=== PATIENT | female | born 1935 | race Caucasian/White ===

== ENCOUNTER 2020-06-13 15:52 | Inpatient (IN) | payer MEDICARE, BC ==
[~2020-06-13] VITALS: Ht 152.4 cm; Wt 60.8 kg
[2020-06-13] MEDS ORDERED: Z GUARD REMEDY PASTE 57 GM TUBE TOP PRN (18:00)
[2020-06-13 19:10] VITALS: BP 141/52
[2020-06-13] MEDS ORDERED: DOCU-141 PO (20:20)
[2020-06-13] MEDS ORDERED: LACT1CAP69 PO (20:20)
[2020-06-13] MEDS ORDERED: ACET-73 PO (20:20)
[2020-06-13] MEDS ORDERED: CETI-90 PO (20:20)
[2020-06-13] MEDS ORDERED: METO25TA3 PO (20:20)
[2020-06-13] MEDS ORDERED: POLY17PO4 GT (20:20)
[2020-06-13] MEDS ORDERED: CHOL10002 PO (20:20)
[2020-06-13] MEDS ORDERED: CALC-343 PO (20:20)
[2020-06-13] MEDS ORDERED: LEVO25TA9 PO (20:20)
[2020-06-13] MEDS ORDERED: TRAM50TA2 PO (20:20)
[2020-06-13] MEDS ORDERED: MULT-594 PO (20:20)
[2020-06-13] MEDS ORDERED: ENOX40DI SQ (20:20)
[2020-06-13] MEDS ORDERED: MONT10TA22 PO (20:20)
[2020-06-13] MEDS ORDERED: OMEG1CAP55 PO (20:20)
[2020-06-13] MEDS ORDERED: DULO20CA PO (20:20)
[2020-06-13] MEDS ORDERED: MIRALAX 17 GM POWD.PACK GT PRN (21:00)
[2020-06-13] MEDS ORDERED: TRAMADOL HCL 50 MG TABLET PO PRN (21:00)
[2020-06-13] MEDS: CETIRIZINE HCL 10 MG TABLET PO SCH (22:07)
[2020-06-13] MEDS: DULOXETINE 20 MG CAPSULE.DR PO SCH (22:07)
[2020-06-13] MEDS: METOPROLOL SUCCINATE XL 25 MG TAB.SR.24H PO SCH (22:08)
--- NOTE | 2020-06-14 00:29 | NUR ---
Received a 85 year old female from [facility] S/P left Total Knee Replacement (06/09) by Dr Lopez. AAOx4 No acute distress noted. Kept comfortable. Dr Moon aware of patient's admission. Meds reconcile by Dr Chua. OOB to the BR via walker with minimal assist. Voiding freely. Left knee dressing clean dry and intact. Patient refused to have picture taken on the surgical site. Needs attended. Will monitor patient. WBAT to LLE. Denies any pain @ this time. VSS. Tolerated po meds well. Fall precautions maintained. Siderails up for safety.
[2020-06-14 05:19] VITALS: BP 132/54
[2020-06-14] MEDS: LEVOTHYROXINE SODIUM 25 MCG TABLET PO SCH (06:23)
--- NOTE | 2020-06-14 07:15 | NUR ---
End of shift notes: Slept well throughout the night. No distress noted. Left knee dressing clean dry and intact. No complaints presented during shift. Attended to needs and met.VSS.
[2020-06-14 07:37] VITALS: BP 152/53
[2020-06-14] MEDS: CALCIUM CARBONATE 500 MG TABLET PO SCH ×2 (08:07→16:42)
[2020-06-14] MEDS: MULTIVITAMINS,THERAPEUTIC TABLET PO SCH (08:07)
[2020-06-14] MEDS: CHOLECALCIFEROL 1,000 UNIT TABLET PO SCH (08:07)
[2020-06-14] MEDS: OMEGA-3 FATTY ACIDS/FISH OIL CAPSULE PO SCH (08:07)
[2020-06-14] MEDS: DOCUSATE SODIUM 100 MG CAPSULE PO SCH ×2 (08:07→16:42)
[2020-06-14] MEDS: ACETAMINOPHEN ES 500 MG TABLET PO SCH ×3 (08:07→16:42)
[2020-06-14] MEDS ORDERED: ENOXAPARIN SODIUM 40 MG/0.4 ML DISP.SYRIN SQ ONE (09:00)
[2020-06-14] MEDS ORDERED: DOCUSATE SODIUM 100 MG CAPSULE PO SCH (09:00)
[2020-06-14] MEDS ORDERED: MONTELUKAST SODIUM 10 MG TABLET PO SCH (09:00)
[2020-06-14 15:37] VITALS: BP 138/47
[2020-06-14] MEDS: MONTELUKAST SODIUM 10 MG TABLET PO SCH (17:04)
[2020-06-14] MEDS: CULTURELLE CAPSULE PO SCH (20:35)
[2020-06-14] MEDS: METOPROLOL SUCCINATE XL 25 MG TAB.SR.24H PO SCH (20:36)
[2020-06-14] MEDS: DULOXETINE 20 MG CAPSULE.DR PO SCH (20:36)
[2020-06-14] MEDS: CETIRIZINE HCL 10 MG TABLET PO SCH (20:36)
[2020-06-14 20:40] VITALS: BP 108/61
[2020-06-15 04:25] VITALS: BP 134/67
--- NOTE | 2020-06-15 04:37 | NUR ---
AAOx3-4 Condition unchanged.dmitted for left knee arthroplasty. left knee dressing intact. Denies any pain nor any discomfort.VSS. Fall precautions maintained.Siderails up for safety. Call celaya within reach. No acute distress noted. OOB to the BR with supervision.
[2020-06-15] MEDS: LEVOTHYROXINE SODIUM 25 MCG TABLET PO SCH (06:27)
--- NOTE | 2020-06-15 06:43 | NUR ---
End of shift notes: Slept well throughout the night. VSS Needs attended. Voiding well. No complaints presented during shift.
[2020-06-15 07:30] VITALS: BP 97/46
[2020-06-15] MEDS: MULTIVITAMINS,THERAPEUTIC TABLET PO SCH (08:05)
[2020-06-15] MEDS: CHOLECALCIFEROL 1,000 UNIT TABLET PO SCH (08:05)
[2020-06-15] MEDS: OMEGA-3 FATTY ACIDS/FISH OIL CAPSULE PO SCH (08:06)
[2020-06-15] MEDS: ENOXAPARIN SODIUM 40 MG/0.4 ML DISP.SYRIN SQ SCH (08:06)
[2020-06-15] MEDS: CALCIUM CARBONATE 500 MG TABLET PO SCH ×2 (08:06→16:19)
[2020-06-15] MEDS: DOCUSATE SODIUM 100 MG CAPSULE PO SCH ×2 (08:06→16:19)
[2020-06-15] MEDS: ACETAMINOPHEN ES 500 MG TABLET PO SCH ×3 (08:06→16:19)
[2020-06-15] MEDS: MIRALAX 17 GM POWD.PACK PO PRN (14:40)
[2020-06-15 14:44] VITALS: BP 107/41
[2020-06-15] MEDS: MONTELUKAST SODIUM 10 MG TABLET PO SCH (17:03)
[2020-06-15] MEDS: CULTURELLE CAPSULE PO SCH (20:31)
[2020-06-15] MEDS: DULOXETINE 20 MG CAPSULE.DR PO SCH (20:32)
[2020-06-15] MEDS: METOPROLOL SUCCINATE XL 25 MG TAB.SR.24H PO SCH (20:32)
[2020-06-15] MEDS: CETIRIZINE HCL 10 MG TABLET PO SCH (20:35)
[2020-06-15] MEDS ORDERED: SENNOSIDES 1 TABLET PO SCH (21:00)
--- NOTE | 2020-06-15 21:49 | NUR ---
Resting in bed upon rounds. AAOx4 No acute distress noted. Fall precautions maintained. Siderails up for safety. VSS. Left knee dressing clean dry and intact. Denies any pain at this time. Tolerated po meds well. Will monitor patient.
[2020-06-16 04:00] VITALS: BP 126/51
[2020-06-16] MEDS: LEVOTHYROXINE SODIUM 25 MCG TABLET PO SCH (06:21)
--- NOTE | 2020-06-16 06:44 | NUR ---
End of shift notes: Quiet night. OOB to the BR with walker with supervision. Needs attended. Continent of bowel and bladder. BM noted this shift.Kept comfortable. No complaints presented during shift.
--- NOTE | 2020-06-16 07:00 | NUR ---
received in bed awake .pt is axox4 call light with in reach vs are stable
[2020-06-16 08:00] VITALS: BP 107/54
[2020-06-16] MEDS: CHOLECALCIFEROL 1,000 UNIT TABLET PO SCH (08:01)
[2020-06-16] MEDS: CALCIUM CARBONATE 500 MG TABLET PO SCH ×2 (08:01→16:06)
[2020-06-16] MEDS: MULTIVITAMINS,THERAPEUTIC TABLET PO SCH (08:01)
[2020-06-16] MEDS: DOCUSATE SODIUM 100 MG CAPSULE PO SCH ×2 (08:01→16:06)
[2020-06-16] MEDS: ACETAMINOPHEN ES 500 MG TABLET PO SCH ×3 (08:01→16:06)
[2020-06-16] MEDS: OMEGA-3 FATTY ACIDS/FISH OIL CAPSULE PO SCH (08:02)
[2020-06-16] MEDS: ENOXAPARIN SODIUM 40 MG/0.4 ML DISP.SYRIN SQ SCH (08:03)
--- NOTE | 2020-06-16 13:48 | NUR ---
INDIVIDUALIZED PLAN OF CARE
--- NOTE | 2020-06-16 13:54 | NUR ---
INTERDISCIPLINARY TEAM CONFERENCE
[2020-06-16 16:00] VITALS: BP 143/49
[2020-06-16] MEDS: MONTELUKAST SODIUM 10 MG TABLET PO SCH (17:10)
--- NOTE | 2020-06-16 19:00 | NUR ---
Patient received from AM nurse. VSS. Will continue to monitor and assess.
[2020-06-16 20:00] VITALS: BP 147/57
[2020-06-16] MEDS: METOPROLOL SUCCINATE XL 25 MG TAB.SR.24H PO SCH (20:02)
[2020-06-16] MEDS: DULOXETINE 20 MG CAPSULE.DR PO SCH (20:02)
[2020-06-16] MEDS: CULTURELLE CAPSULE PO SCH (20:02)
[2020-06-16] MEDS: CETIRIZINE HCL 10 MG TABLET PO SCH (20:02)
[2020-06-17 04:00] VITALS: BP 129/72
--- NOTE | 2020-06-17 04:02 | NUR ---
Patient is a pleasant 85 y/o female. Slept soundly with no reports of pain, discomfort, or SOB. VSS. Medications given as prescribed. Patient educated as to importance of using call light to get out of bed, continually forgets, bed alarm on. Will continue to monitor and assess.
[2020-06-17] MEDS: LEVOTHYROXINE SODIUM 25 MCG TABLET PO SCH (06:00)
--- NOTE | 2020-06-17 07:04 | NUR ---
Patient handed off to AM nurse. VSS. Patient in stable condition. Endorsing to AM nurse.
[2020-06-17] MEDS: DOCUSATE SODIUM 100 MG CAPSULE PO SCH ×2 (08:01→16:19)
[2020-06-17] MEDS: CALCIUM CARBONATE 500 MG TABLET PO SCH ×2 (08:02→16:19)
[2020-06-17] MEDS: MULTIVITAMINS,THERAPEUTIC TABLET PO SCH (08:02)
[2020-06-17] MEDS: ACETAMINOPHEN ES 500 MG TABLET PO SCH ×3 (08:02→16:19)
[2020-06-17] MEDS: CHOLECALCIFEROL 1,000 UNIT TABLET PO SCH (08:02)
[2020-06-17] MEDS: OMEGA-3 FATTY ACIDS/FISH OIL CAPSULE PO SCH (08:03)
[2020-06-17] MEDS: ENOXAPARIN SODIUM 40 MG/0.4 ML DISP.SYRIN SQ SCH (08:03)
[2020-06-17 08:17] VITALS: BP 136/57
[2020-06-17 14:58] VITALS: BP 132/58
[2020-06-17] MEDS: MONTELUKAST SODIUM 10 MG TABLET PO SCH (17:19)
[2020-06-17 20:35] VITALS: BP 143/72
[2020-06-17] MEDS: METOPROLOL SUCCINATE XL 25 MG TAB.SR.24H PO SCH (20:50)
[2020-06-17] MEDS: DULOXETINE 20 MG CAPSULE.DR PO SCH (20:50)
[2020-06-17] MEDS: CULTURELLE CAPSULE PO SCH (20:50)
[2020-06-17] MEDS: CETIRIZINE HCL 10 MG TABLET PO SCH (20:50)
[2020-06-18] MEDS: MIRALAX 17 GM POWD.PACK PO PRN ×2 (00:42→12:22)
[2020-06-18 05:22] VITALS: BP 147/54
[2020-06-18] MEDS: LEVOTHYROXINE SODIUM 25 MCG TABLET PO SCH (06:09)
--- NOTE | 2020-06-18 07:05 | NUR ---
Patient in bed, stable on RA. Assisted to bathroom once with walker. Not in any acute distress
[2020-06-18 08:00] VITALS: BP 154/64
[2020-06-18] MEDS ORDERED: MAG HYDROX/AL HYDROX/SIMETH 30 ML LIQUID UDC PO PRN (08:00)
[2020-06-18] MEDS: ENOXAPARIN SODIUM 40 MG/0.4 ML DISP.SYRIN SQ SCH (08:13)
[2020-06-18] MEDS: CHOLECALCIFEROL 1,000 UNIT TABLET PO SCH (08:15)
[2020-06-18] MEDS: ACETAMINOPHEN ES 500 MG TABLET PO SCH ×3 (08:15→16:21)
[2020-06-18] MEDS: MULTIVITAMINS,THERAPEUTIC TABLET PO SCH (08:15)
[2020-06-18] MEDS: OMEGA-3 FATTY ACIDS/FISH OIL CAPSULE PO SCH (08:15)
[2020-06-18] MEDS: DOCUSATE SODIUM 100 MG CAPSULE PO SCH ×2 (08:15→16:21)
[2020-06-18] MEDS: CALCIUM CARBONATE 500 MG TABLET PO SCH ×2 (08:15→16:21)
[2020-06-18] MEDS: ONDANSETRON ODT 4 MG TAB.RAPDIS SL PRN (11:40)
[2020-06-18 16:00] VITALS: BP 160/54
[2020-06-18] MEDS: MONTELUKAST SODIUM 10 MG TABLET PO SCH (17:02)
--- NOTE | 2020-06-18 19:57 | NUR ---
Received pt sleeping in bed. Does not appear to have any s/s of pain or respiratory distress at this time. Pt is on RA. Will continue to monitor.
[2020-06-18] MEDS: DULOXETINE 20 MG CAPSULE.DR PO SCH (20:42)
[2020-06-18] MEDS: CETIRIZINE HCL 10 MG TABLET PO SCH (20:42)
[2020-06-18] MEDS: CULTURELLE CAPSULE PO SCH (20:42)
[2020-06-18] MEDS: METOPROLOL SUCCINATE XL 25 MG TAB.SR.24H PO SCH (20:43)
[2020-06-18 20:56] VITALS: BP 123/56
--- NOTE | 2020-06-19 04:35 | NUR ---
RECEIVED PATIENT IN BED AWAKE ALERT AND VERBALLY RESPONSIVE DENIES PAIN OR DISCOMFORTS AT THIS TIME LEFT KNEE WITH DRESSING DRY AND INTACT ON ROOM AIR WITH NO SHORTNESS OF BREATH AT THIS TIME CALL LIGHTS AND PERSONAL BELONGINGS ARE WITHIN EASY REACH AT THIS TIME MADE COMFORTABLE WILL CONTINUE TO OBSERVE. Addendum: 06/19/20 at 1405 by TRINITY LUGO RN TIME ERROR ENTERED AT 3019
[2020-06-19 05:22] VITALS: BP 140/64
[2020-06-19] MEDS: LEVOTHYROXINE SODIUM 25 MCG TABLET PO SCH (06:20)
--- NOTE | 2020-06-19 06:43 | NUR ---
Pt slept throughout the night. Denies any pain or SOB at this time. Pt is on RA with no s/s of respiratory distress. All ordered medications given and tolerated well. Pt is able to ambulate to the restroom with assistance and a walker. Safety and comfort provided. Will endorse to day shift.
[2020-06-19 07:51] VITALS: BP 133/59
[2020-06-19] MEDS: CHOLECALCIFEROL 1,000 UNIT TABLET PO SCH (08:12)
[2020-06-19] MEDS: OMEGA-3 FATTY ACIDS/FISH OIL CAPSULE PO SCH (08:13)
[2020-06-19] MEDS: DOCUSATE SODIUM 100 MG CAPSULE PO SCH ×2 (08:13→16:26)
[2020-06-19] MEDS: CALCIUM CARBONATE 500 MG TABLET PO SCH ×2 (08:13→16:26)
[2020-06-19] MEDS: MULTIVITAMINS,THERAPEUTIC TABLET PO SCH (08:13)
[2020-06-19] MEDS: ENOXAPARIN SODIUM 40 MG/0.4 ML DISP.SYRIN SQ SCH (08:14)
[2020-06-19] MEDS: ACETAMINOPHEN ES 500 MG TABLET PO SCH ×3 (08:24→16:26)
--- NOTE | 2020-06-19 14:00 | NUR ---
SEEN AMBULATORY IN THE HALLWAY WITH THE PHYSICAL THERAPY WITH SLOW STEADY GAIT WITH FRONT WHEEL WALKER DENIES PAIN OR DISCOMFORTS AT THIS TIME.NOT IN DISTRESS.
[2020-06-19 16:00] VITALS: BP 122/63
[2020-06-19] MEDS: ENSURE ENLIVE (VAN) 240 ML LIQUID PO SCH (17:15)
[2020-06-19] MEDS: MONTELUKAST SODIUM 10 MG TABLET PO SCH (17:15)
--- NOTE | 2020-06-19 17:38 | NUR ---
RESTING IN BED EATING DINNER COMPLIANT AND COOPERATIVE PATIENT WAS ASSISTED INTO THE BATHROOM AND HAD A BOWEL MOVEMENT BACK AND IN SATISFACTORY CONDITION WILL CONTINUE TO OBSERVE.
--- NOTE | 2020-06-19 19:30 | NUR ---
Pt received awake and alert in bed. Denies any pain or difficulty breathing at this time. Pt is on RA. Will continue to monitor.
[2020-06-19 19:52] VITALS: BP 110/41
[2020-06-19] MEDS: CETIRIZINE HCL 10 MG TABLET PO SCH (20:40)
[2020-06-19] MEDS: DULOXETINE 20 MG CAPSULE.DR PO SCH (20:40)
[2020-06-19] MEDS: CULTURELLE CAPSULE PO SCH (20:40)
[2020-06-19] MEDS: METOPROLOL SUCCINATE XL 25 MG TAB.SR.24H PO SCH (20:41)
[2020-06-20 04:55] VITALS: BP 118/45
[2020-06-20] MEDS: LEVOTHYROXINE SODIUM 25 MCG TABLET PO SCH (06:23)
--- NOTE | 2020-06-20 06:30 | NUR ---
Received report from Christin VILLASEÑOR @ 0130. Pt sleeping, no acute distress noted. Morning medication administered. Safety and comfort provided. Will endorse to day shift.
--- NOTE | 2020-06-20 07:30 | NUR ---
PATIENT IN BED AWAKE ALERT AND AWARE DENIES PAIN OR DISCOMFORTS AT THIS TIME ON ROOM AIR WITH NO SHORTNESS OF BREATH CALL LIGHTS AND ALL PERSONAL BELONGINGS ARE WITHIN EASY REACH MADE COMFORTABLE WILL CONTINUE TO OBSERVE.
[2020-06-20 07:44] VITALS: BP 118/45
[2020-06-20] MEDS: DOCUSATE SODIUM 100 MG CAPSULE PO SCH ×2 (08:18→16:23)
[2020-06-20] MEDS: CALCIUM CARBONATE 500 MG TABLET PO SCH ×2 (08:18→16:23)
[2020-06-20] MEDS: ACETAMINOPHEN ES 500 MG TABLET PO SCH ×3 (08:18→16:23)
[2020-06-20] MEDS: MULTIVITAMINS,THERAPEUTIC TABLET PO SCH (08:18)
[2020-06-20] MEDS: CHOLECALCIFEROL 1,000 UNIT TABLET PO SCH (08:19)
[2020-06-20] MEDS: OMEGA-3 FATTY ACIDS/FISH OIL CAPSULE PO SCH (08:19)
[2020-06-20] MEDS: ENOXAPARIN SODIUM 40 MG/0.4 ML DISP.SYRIN SQ SCH (08:26)
[2020-06-20] MEDS: ENSURE ENLIVE (VAN) 240 ML LIQUID PO SCH ×3 (09:05→16:24)
[2020-06-20] MEDS: MONTELUKAST SODIUM 10 MG TABLET PO SCH (17:17)
--- NOTE | 2020-06-20 18:28 | NUR ---
PATIENT TOLERATED PHYSICAL AND OCCUPATIONAL THERAPIES ORDERED SEATED UP ON THE CHAIR AND ASSISTED BACK TO BED AFTER HER DINNER CONTINUE ON ROUTINE TYLENOL ORDERED AND HELPFUL WILL CONTINUE TO OBSERVE AND PROVIDE COMFORT.
[2020-06-20 20:38] VITALS: BP 106/49
[2020-06-20] MEDS: DULOXETINE 20 MG CAPSULE.DR PO SCH (20:49)
[2020-06-20] MEDS: METOPROLOL SUCCINATE XL 25 MG TAB.SR.24H PO SCH (20:49)
[2020-06-20] MEDS: CULTURELLE CAPSULE PO SCH (20:49)
[2020-06-20] MEDS: CETIRIZINE HCL 10 MG TABLET PO SCH (20:49)
[2020-06-21 04:53] VITALS: BP 110/40
[2020-06-21] MEDS: LEVOTHYROXINE SODIUM 25 MCG TABLET PO SCH (06:02)
[2020-06-21 07:04] LABS: BASOPHILS % (AUTO) 0.4 % (0.0-2.0); EOSINOPHILS # (AUTO) 0.1 K/uL (0.0-0.7); EOSINOPHILS % (AUTO) 1.3 % (0.0-7.0); HEMATOCRIT 28.5 % (31.2-41.9); HEMOGLOBIN 9.9 g/dL (10.9-14.3); LYMPHOCYTES # (AUTO) 1.3 K/uL (20.0-40.0); LYMPHOCYTES % (AUTO) 18.2 % (20.5-51.5); MEAN CORPUSCULAR HEMOGLOBIN 31.8 uug (24.7-32.8); MEAN CORPUSCULAR HGB CONC 35 g/dL (32.3-35.6); MEAN CORPUSCULAR VOLUME 91.6 fL (75.5-95.3); MONOCYTES # (AUTO) 0.9 K/uL (2.0-10.0); MONOCYTES % (AUTO) 13.3 % (0.0-11.0); NEUTROPHILS # (AUTO) 4.7 K/uL (1.8-8.9); NEUTROPHILS % (AUTO) 66.8 % (38.5-71.5); PLATELET COUNT (AUTO) 159 K/uL (179-408); RED BLOOD CELL COUNT(AUTO) 3.11 MIL/uL (3.63-4.92)
[2020-06-21 07:16] LABS: THYROID STIMULATING HORMONE 1.88 mIU/mL (0.358-3.740)
[2020-06-21 08:00] VITALS: BP 102/41
[2020-06-21 08:01] LABS: BILIRUBIN,TOTAL 0.8 mg/dL (0.2-1.0); CREATININE 1.1 mg/dL (0.6-1.3); MAGNESIUM 2.1 mg/dL (1.8-2.4); PHOSPHOROUS 4.2 mg/dL (2.5-4.9); POTASSIUM 4.1 mmol/L (3.5-5.1); TOTAL PROTEIN, SERUM 6.7 g/dL (6.4-8.2)
[2020-06-21] MEDS: CHOLECALCIFEROL 1,000 UNIT TABLET PO SCH (08:51)
[2020-06-21] MEDS: MULTIVITAMINS,THERAPEUTIC TABLET PO SCH (08:52)
[2020-06-21] MEDS: DOCUSATE SODIUM 100 MG CAPSULE PO SCH ×2 (08:52→17:00)
[2020-06-21] MEDS: CALCIUM CARBONATE 500 MG TABLET PO SCH ×2 (08:56→17:49)
[2020-06-21] MEDS: ONDANSETRON ODT 4 MG TAB.RAPDIS SL PRN (08:56)
[2020-06-21] MEDS: OMEGA-3 FATTY ACIDS/FISH OIL CAPSULE PO SCH (08:57)
[2020-06-21] MEDS: ENSURE ENLIVE (VAN) 240 ML LIQUID PO SCH ×3 (08:58→17:00)
[2020-06-21] MEDS: ACETAMINOPHEN ES 500 MG TABLET PO SCH ×3 (09:01→17:49)
[2020-06-21] MEDS ORDERED: ENOXAPARIN SODIUM 30 MG/0.3 ML DISP.SYRIN SQ SCH (10:51)
[2020-06-21] MEDS: ENOXAPARIN SODIUM 30 MG/0.3 ML DISP.SYRIN SQ SCH (11:58)
[2020-06-21 15:56] VITALS: BP 101/46
[2020-06-21] MEDS: MONTELUKAST SODIUM 10 MG TABLET PO SCH (17:54)
--- NOTE | 2020-06-21 19:35 | NUR ---
Sleeping during initial rounds. No s/s of respiratory distress noted. Safety measures and fall prevention maintained. Continue care as planned.
[2020-06-21 20:00] VITALS: BP 109/45
[2020-06-21] MEDS: METOPROLOL SUCCINATE XL 25 MG TAB.SR.24H PO SCH (21:00)
[2020-06-21] MEDS: CETIRIZINE HCL 10 MG TABLET PO SCH (21:16)
[2020-06-21] MEDS: CULTURELLE CAPSULE PO SCH (21:16)
[2020-06-21] MEDS: DULOXETINE 20 MG CAPSULE.DR PO SCH (21:16)
[2020-06-22 04:00] VITALS: BP 118/62
[2020-06-22] MEDS: LEVOTHYROXINE SODIUM 25 MCG TABLET PO SCH (06:10)
[2020-06-22] MEDS: CALCIUM CARBONATE 500 MG TABLET PO SCH (08:02)
[2020-06-22] MEDS: OMEGA-3 FATTY ACIDS/FISH OIL CAPSULE PO SCH (08:02)
[2020-06-22] MEDS: MULTIVITAMINS,THERAPEUTIC TABLET PO SCH (08:02)
[2020-06-22] MEDS: CHOLECALCIFEROL 1,000 UNIT TABLET PO SCH (08:02)
[2020-06-22] MEDS: ENOXAPARIN SODIUM 30 MG/0.3 ML DISP.SYRIN SQ SCH (08:03)
[2020-06-22] MEDS: ACETAMINOPHEN ES 500 MG TABLET PO SCH (08:05)
[2020-06-22 08:40] VITALS: BP 128/45
--- NOTE | 2020-06-22 08:45 | NUR ---
pt heart rate is 135 to 125 md made aware new orders received note and carried out
[2020-06-22] MEDS: DOCUSATE SODIUM 100 MG CAPSULE PO SCH (09:00)
[2020-06-22] MEDS ORDERED: ENOXAPARIN SODIUM 30 MG/0.3 ML DISP.SYRIN SQ SCH (09:00)
[2020-06-22] MEDS: ENSURE ENLIVE (VAN) 240 ML LIQUID PO SCH (09:29)
--- NOTE | 2020-06-22 09:46 | NUR ---
dc orders received noted and carried out,dc instruction and education given to the pt.dc pt to ms floor
== END 2020-06-22 09:48 | disposition short-term general hospital (02) | DRG 560 ==
PROVIDERS: ADMIT Physical Medicine & Rehabilitation Pain Medicine; ATTEND Physical Medicine & Rehabilitation Pain Medicine
DX: Z47.1 Aftercare following joint replacement surgery (principal); M00.9 Pyogenic arthritis, unspecified; Z96.652 Presence of left artificial knee joint; E03.9 Hypothyroidism, unspecified; I10 Essential (primary) hypertension; J44.9 Chronic obstructive pulmonary disease, unspecified; M19.90 Unspecified osteoarthritis, unspecified site; R53.1 Weakness; R00.0 Tachycardia, unspecified; R06.02 Shortness of breath; E06.3 Autoimmune thyroiditis; E78.5 Hyperlipidemia, unspecified; M17.10 Unilateral primary osteoarthritis, unspecified knee; M81.0 Age-related osteoporosis without current pathological fracture; Z86.718 Personal history of other venous thrombosis and embolism; Z90.49 Acquired absence of other specified parts of digestive tract
CPT/HCPCS: 36415; 82652; 83550; 83735; 84100; 84443; 85025; A9150; J1650; Q0162

== ENCOUNTER 2020-06-22 09:56 | Inpatient (IN) | payer MEDICARE, BC ==
[2020-06-22] VITALS (8 sets, daily range): BP systolic 113–136; BP diastolic 46–60
[~2020-06-22] VITALS: Ht 154.9 cm; Wt 59.9 kg
[~2020-06-22 09:56] MED LIST: ACET-73 PO; CALC-343 PO; CETI-90 PO; CHOL10002 PO; DOCU-141 PO; DULO20CA PO; ENOX40DI SQ; LACT1CAP69 PO; LEVO25TA9 PO; METO25TA3 PO; MONT10TA22 PO; MULT-594 PO; OMEG1CAP55 PO; POLY17PO4 GT; TRAM50TA2 PO
--- NOTE | 2020-06-22 10:30 | NUR ---
pt received from aru to room 321 for tachycardia ,pt is axox3 brp call light with in reach vs are stable
[2020-06-22] MEDS ORDERED: ONDANSETRON 4 MG/2 ML VIAL IV PRN (12:30)
[2020-06-22] MEDS ORDERED: TEMAZEPAM 15 MG CAPSULE PO PRN (12:30)
[2020-06-22] MEDS ORDERED: MIRALAX 17 GM POWD.PACK GT PRN (12:30)
[2020-06-22 13:36] LABS: POTASSIUM 4.4 mmol/L (3.5-5.1)
[2020-06-22 13:38] LABS: BASOPHILS % (AUTO) 0.4 % (0.0-2.0); EOSINOPHILS # (AUTO) 0.1 K/uL (0.0-0.7); EOSINOPHILS % (AUTO) 1.3 % (0.0-7.0); HEMATOCRIT 32.4 % (31.2-41.9); HEMOGLOBIN 10.7 g/dL (10.9-14.3); LYMPHOCYTES # (AUTO) 1.7 K/uL (20.0-40.0); LYMPHOCYTES % (AUTO) 22.4 % (20.5-51.5); MEAN CORPUSCULAR HEMOGLOBIN 30.6 uug (24.7-32.8); MEAN CORPUSCULAR HGB CONC 33 g/dL (32.3-35.6); MEAN CORPUSCULAR VOLUME 92.7 fL (75.5-95.3); MONOCYTES # (AUTO) 0.8 K/uL (2.0-10.0); MONOCYTES % (AUTO) 10.9 % (0.0-11.0); PLATELET COUNT (AUTO) 238 K/uL (179-408); WHITE BLOOD COUNT (AUTO) 7.7 K/uL (3.8-11.8)
[2020-06-22 13:48] LABS: PHOSPHOROUS 4.3 mg/dL (2.5-4.9)
[2020-06-22 15:39] LABS: *BILIRUBIN,URIN NEGATIVE (NEGATIVE); *CLARITY,URINE CLEAR (CLEAR); *COLOR,URINE YELLOW (YELLOW); *KETONES,URINE NEGATIVE (NEGATIVE); *UROBILINOGEN,URINE 0.2 E.U./dl (NORMAL); LEUKOCYTE ESTERASE ,URINE NEGATIVE (NEGATIVE); NITRITE, URINE NEGATIVE (NEGATIVE); PH,URINE 6.5 (5.0-8.0); UGLUCOSE NEGATIVE (NEGATIVE)
[2020-06-22 15:40] LABS: *BLOOD, URINE TRACE INTACT (NEGATIVE)
[2020-06-22] MEDS: ASPIRIN EC 81 MG TABLET.DR PO SCH (15:51)
[2020-06-22] MEDS ORDERED: IV NORMAL SALINE 250 ML IV ONE (17:20)
[2020-06-22] MEDS ORDERED: SWABABLE VALVE TRANSFER SET EA MC ONE (17:20)
[2020-06-22] MEDS ORDERED: IOHEXOL 350 100 ML INFUS..BTL ONE (17:20)
[2020-06-22] MEDS: CALCIUM CARBONATE 500 MG TABLET PO SCH (17:29)
[2020-06-22] MEDS: DOCUSATE SODIUM 100 MG CAPSULE PO SCH (17:29)
--- NOTE | 2020-06-22 18:10 | NUR ---
transfer the pt to ccu via wheel chair for pe per md orders
[2020-06-22] MEDS ORDERED: HEPARIN/D5W DRIP 500 ML IV PRN (18:45)
[2020-06-22 19:12] LABS: BACTERIA,URINE NONE SEEN /HPF (NONE SEEN); SQUAMOUS EPITHELIAL CELL,UR MANY /HPF (NONE SEEN); WBC,URINE 0-3 /HPF (0-3)
--- NOTE | 2020-06-22 19:30 | NUR ---
Report received. Patient transferred in from 3rd floor because of tachycardia and Pulmonary Emboli per CTA. Blood drawn for baseline PTT. Patient AAO, plan of care discussed including Heparin drip. Patient verbalized understanding. Assessment done. Heparin drip protocol for non ACS discussed with Pharmacist. Addendum: 06/22/20 at 2300 by MARCIO BAILEY RN Amended: Links added. Addendum: 06/22/20 at 2303 by MARCIO BAILEY RN Amended: Links added. Addendum: 06/22/20 at 2312 by MARCIO BAILEY RN Amended: Links added.
--- NOTE | 2020-06-22 19:54 | NUR ---
Dr. Holt informed of PTT results, Heparin bolus as per protocol and need for Sargent catheter. ordered no bolus and ok for Sargent catheter. Pharmacist informed of MD's order. Addendum: 06/22/20 at 2303 by MARCIO BAILEY RN Amended: Links added. Addendum: 06/22/20 at 2312 by MARCIO BAILEY RN Amended: Links added.
--- NOTE | 2020-06-22 20:05 | NUR ---
Dr. Holt visited; spoke to patient re: plan of care. Sargent catheter F#16 inserted aseptically; with clear yellow urine. Addendum: 06/22/20 at 2312 by MARCIO BAILEY RN Amended: Links added.
--- NOTE | 2020-06-22 20:30 | NUR ---
Heparin drip started to LAC IV site; PTT in 6 hours.
[2020-06-22] MEDS ORDERED: DULOXETINE 20 MG CAPSULE.DR PO SCH (21:00)
[2020-06-22] MEDS: CULTURELLE CAPSULE PO SCH (21:13)
[2020-06-22] MEDS: METOPROLOL SUCCINATE XL 25 MG TAB.SR.24H PO SCH (21:13)
[2020-06-22] MEDS: CETIRIZINE HCL 10 MG TABLET PO SCH (21:13)
[2020-06-22] MEDS ORDERED: METOPROLOL SUCCINATE XL 25 MG TAB.SR.24H PO ONE (21:14)
[2020-06-22] MEDS ORDERED: CETIRIZINE HCL 10 MG TABLET ONE (21:15)
[2020-06-22] MEDS: ACETAMINOPHEN 325 MG TABLET PO PRN (21:18)
--- NOTE | 2020-06-22 22:30 | NUR ---
Noted to have sleep apnea; saturations down to the 60's and lips pale. Patient awakened and saturations improved. O2 5 L simple mask administered. Will monitor closely.
[2020-06-23] VITALS (9 sets, daily range): BP systolic 94–154; BP diastolic 46–83
--- NOTE | 2020-06-23 00:20 | NUR ---
Patient awake. C/o pain L knee. Tylenol with little effect. Medicated with Ultram. Am care done. Turned and repositioned for comfort.
[2020-06-23] MEDS: TRAMADOL HCL 50 MG TABLET PO PRN (00:29)
--- NOTE | 2020-06-23 00:30 | NUR ---
Refusing O2 mask. Monitored closely. Saturations maintaining above 94% on room air.
--- NOTE | 2020-06-23 02:30 | NUR ---
Patient refused blood draw after yard labor supervisor failed to obtain sample the first time. Talked to patient and advised of importance of the test and she agreed. Blood sample for PTT obtained by tech but with difficulty.
--- NOTE | 2020-06-23 03:20 | NUR ---
PTT results=75.2 seconds. Heparin drip decreased to 1000 units/H as per protocol. Repeat PTT in 6 hours= 0920 ordered. No signs of bleeding.
--- NOTE | 2020-06-23 06:00 | NUR ---
Remains on Heparin drip at 1000 units/H. No signs of bleeding. VS stable.
[2020-06-23] MEDS: PANTOPRAZOLE SODIUM 40 MG TABLET.DR PO SCH (06:10)
--- NOTE | 2020-06-23 07:04 | NUR ---
Transfer order received from Dr. Holt. Patient to go to [facility].
[2020-06-23 07:31] LABS: BASOPHILS % (AUTO) 0.4 % (0.0-2.0); EOSINOPHILS % (AUTO) 0.5 % (0.0-7.0); HEMATOCRIT 32.3 % (31.2-41.9); HEMOGLOBIN 10.9 g/dL (10.9-14.3); LYMPHOCYTES # (AUTO) 1.4 K/uL (20.0-40.0); LYMPHOCYTES % (AUTO) 15.6 % (20.5-51.5); MEAN CORPUSCULAR HGB CONC 34 g/dL (32.3-35.6); MEAN CORPUSCULAR VOLUME 92.3 fL (75.5-95.3); MONOCYTES # (AUTO) 0.7 K/uL (2.0-10.0); MONOCYTES % (AUTO) 7.9 % (0.0-11.0); NEUTROPHILS # (AUTO) 6.8 K/uL (1.8-8.9); NEUTROPHILS % (AUTO) 75.6 % (38.5-71.5); PLATELET COUNT (AUTO) 108 K/uL (179-408); WHITE BLOOD COUNT (AUTO) 9.1 K/uL (3.8-11.8)
--- NOTE | 2020-06-23 07:41 | NUR ---
Transferred to 321 per bed; no acute distress noted. Heparin drip infusing well. All belongings including cell phone are with patient upon transfer.
[2020-06-23 07:48] LABS: CREATININE 0.9 mg/dL (0.6-1.3); MAGNESIUM 2.1 mg/dL (1.8-2.4); PHOSPHOROUS 4.4 mg/dL (2.5-4.9); POTASSIUM 4.7 mmol/L (3.5-5.1)
[2020-06-23] MEDS ORDERED: MONTELUKAST SODIUM 10 MG TABLET PO SCH (09:00)
[2020-06-23] MEDS ORDERED: LEVOTHYROXINE SODIUM 25 MCG TABLET PO SCH (09:00)
[2020-06-23] MEDS ORDERED: ENOXAPARIN SODIUM 30 MG/0.3 ML DISP.SYRIN SQ SCH (09:00)
[2020-06-23] MEDS: CHOLECALCIFEROL 1,000 UNIT TABLET PO SCH (09:29)
[2020-06-23] MEDS: ASPIRIN EC 81 MG TABLET.DR PO SCH (09:29)
[2020-06-23] MEDS: MULTIVITAMINS,THERAPEUTIC TABLET PO SCH (09:30)
[2020-06-23] MEDS: DOCUSATE SODIUM 100 MG CAPSULE PO SCH ×2 (09:30→17:51)
[2020-06-23] MEDS: CALCIUM CARBONATE 500 MG TABLET PO SCH ×2 (09:30→17:51)
[2020-06-23] MEDS: OMEGA-3 FATTY ACIDS/FISH OIL CAPSULE PO SCH (09:31)
--- NOTE | 2020-06-23 09:45 | NUR ---
PTT 53.1 seconds. No change in heparin drip rate. No s/s of bleeding. Denies any discomfort/pain.
--- NOTE | 2020-06-23 12:15 | NUR ---
Heparin drip d/c. Eliquis 5mg PO BID initiated.
[2020-06-23] MEDS ORDERED: TEMAZEPAM 7.5 MG CAPSULE PO PRN (12:45)
[2020-06-23] MEDS: APIXABAN 5 MG TABLET PO SCH ×2 (13:37→20:15)
--- NOTE | 2020-06-23 17:28 | NUR ---
Pt AAOx4 w/ some short term memory loss. S/p L TKA. Positive right lower lobe P.E. SR on monitor, denies CP. Ra, no SOB. No new skin issues, L knee dressing c/d/i with autumn hose stocking on. Bedrest, pt turned q2h. Continent x2, rush in place w/ clear yellow output. All needs attended to. Plan: AM labs, jose manuel for P.E., tele monitoring, abd US, pain management, hemat consult
[2020-06-23] MEDS: CETIRIZINE HCL 10 MG TABLET PO SCH (20:14)
[2020-06-23] MEDS: CULTURELLE CAPSULE PO SCH (20:16)
[2020-06-23] MEDS: METOPROLOL SUCCINATE XL 25 MG TAB.SR.24H PO SCH (20:18)
--- NOTE | 2020-06-23 20:30 | NUR ---
Patient refused CT Without Contrast. Would like to speak to son first. Was educated as to importance and ease of getting a CT, patient still refused. Will monitor and assess.
[2020-06-24] MEDS: PANTOPRAZOLE SODIUM 40 MG TABLET.DR PO SCH (06:03)
[2020-06-24] MEDS: LEVOTHYROXINE SODIUM 25 MCG TABLET PO SCH (06:03)
--- NOTE | 2020-06-24 06:57 | NUR ---
Patient handed off to AM nurse. Stable condition. All vitals WNLs. Safety measures in place. Will endorse to AM nurse.
[2020-06-24 07:46] LABS: THYROID STIMULATING HORMONE 2.582 mIU/mL (0.358-3.740)
--- NOTE | 2020-06-24 08:00 | NUR ---
RECEIVED PATIENT IN BED AWAKE ALERT AND AWARE DENIES PAIN OR DISCOMFORTS AT THIS TIME ON ROOM AIR WITH NO SHORTNESS OF BREATH AT THIS TIME DENIES PAIN OR DISCOMFORTS TELE IS SR AT THIS TIME CALL LIGHTS AND PERSONAL BELONGINGS ARE WITHIN EASY REACH WILL CONTINUE TO OBSERVE.
[2020-06-24 08:04] LABS: BILIRUBIN,DIRECT 0.1 mg/dL (0.0-0.2); BILIRUBIN,TOTAL 0.5 mg/dL (0.2-1.0); TOTAL PROTEIN, SERUM 7.1 g/dL (6.4-8.2)
[2020-06-24] MEDS: MULTIVITAMINS,THERAPEUTIC TABLET PO SCH (09:31)
[2020-06-24] MEDS: DOCUSATE SODIUM 100 MG CAPSULE PO SCH ×2 (09:31→16:48)
[2020-06-24] MEDS: CALCIUM CARBONATE 500 MG TABLET PO SCH ×2 (09:31→16:48)
[2020-06-24] MEDS: CHOLECALCIFEROL 1,000 UNIT TABLET PO SCH (09:32)
[2020-06-24] MEDS: OMEGA-3 FATTY ACIDS/FISH OIL CAPSULE PO SCH (09:32)
[2020-06-24] MEDS: APIXABAN 5 MG TABLET PO SCH ×2 (09:33→20:14)
[2020-06-24 12:00] VITALS: BP 120/63
--- NOTE | 2020-06-24 14:32 | NUR ---
CALL RECEIVED FROM RADIOLOGY DEPT STATED THAT PATIENT HAS REFUSED HER CT OF THE HEAD YERTERDAY AND WILL COME TO DO IT TODAY PATIENT AND HER SON IS NOW AGREEABLE TO HAVE IT DONE TODAY.
--- NOTE | 2020-06-24 14:37 | NUR ---
DR CALDERÓN HERE NOTIFIED HIM THAT THE PATIENT WANTS HER MCKENZIE TO BE REMOVED AND HE STATED TO GO AHEAD AND REMOVE IT MCKENZIE REMOVED PATIENT EDUCATED TO CALL TO BE ASSISTED TO THE BATHROOM WHENEVER SHE IS READY TO GO AND SHE EXPRESSED UNDERSTANDING.
[2020-06-24 16:00] VITALS: BP 128/50
[2020-06-24] MEDS: MONTELUKAST SODIUM 10 MG TABLET PO SCH (17:06)
--- NOTE | 2020-06-24 18:44 | NUR ---
PATIENT IS VOIDING APPETITE IS POOR HER SOUP FROM THE REFRIGERATOR WARMED UP AND GIVEN TO HER TO EAT SHE WAS SEEN BY DR ARANA WITH NEW LAB ORDERS MADE COMFORTABLE WILL CONTINUE TO OBSERVE.
[2020-06-24] MEDS ORDERED: BISACODYL 10 MG SUPP.RECT RC PRN (18:45)
[2020-06-24 20:00] VITALS: BP 94/53
--- NOTE | 2020-06-24 20:00 | NUR ---
AWAKE,ALERT UP TO BATHROOM WITH HELP HAD A BOWEL MOVEMENT.TO CAT SCAN OF HEAD VIA WHEELCHAIR, BACK STABLE.NO COMPLAINTS RESTING COMFORTABLY.
[2020-06-24] MEDS: CULTURELLE CAPSULE PO SCH (20:12)
[2020-06-24] MEDS: METOPROLOL SUCCINATE XL 25 MG TAB.SR.24H PO SCH (20:14)
[2020-06-24] MEDS: CETIRIZINE HCL 10 MG TABLET PO SCH (20:53)
[2020-06-25] VITALS: BP 127/50
--- NOTE | 2020-06-25 00:30 | NUR ---
complained of left lower extremity ultram 1 tab given,slightly relieved
[2020-06-25] MEDS: TRAMADOL HCL 50 MG TABLET PO PRN ×3 (00:35→22:54)
[2020-06-25] MEDS: ACETAMINOPHEN 325 MG TABLET PO PRN (02:41)
--- NOTE | 2020-06-25 03:00 | NUR ---
COMPLAINED OF LEFT LOWER EXTREMITY PAIN TYLENOL GRAIN 10 GIVEN SLEPT AFTER
[2020-06-25 04:00] VITALS: BP 120/72
[2020-06-25] MEDS: LEVOTHYROXINE SODIUM 25 MCG TABLET PO SCH (06:05)
[2020-06-25] MEDS: PANTOPRAZOLE SODIUM 40 MG TABLET.DR PO SCH (06:05)
[2020-06-25 07:17] LABS: BASOPHILS # (AUTO) 0.1 K/uL (0.0-8.0); BASOPHILS % (AUTO) 0.7 % (0.0-2.0); EOSINOPHILS # (AUTO) 0.1 K/uL (0.0-0.7); EOSINOPHILS % (AUTO) 1.4 % (0.0-7.0); HEMATOCRIT 31.9 % (31.2-41.9); HEMOGLOBIN 10.9 g/dL (10.9-14.3); LYMPHOCYTES # (AUTO) 1.9 K/uL (20.0-40.0); MEAN CORPUSCULAR HEMOGLOBIN 31.4 uug (24.7-32.8); MEAN CORPUSCULAR HGB CONC 34 g/dL (32.3-35.6); MONOCYTES # (AUTO) 1.1 K/uL (2.0-10.0); NEUTROPHILS # (AUTO) 6.2 K/uL (1.8-8.9); NEUTROPHILS % (AUTO) 65.9 % (38.5-71.5); PLATELET COUNT (AUTO) 202 K/uL (179-408); RED BLOOD CELL COUNT(AUTO) 3.46 MIL/uL (3.63-4.92); WHITE BLOOD COUNT (AUTO) 9.3 K/uL (3.8-11.8)
[2020-06-25 07:40] LABS: BILIRUBIN,TOTAL 0.5 mg/dL (0.2-1.0); CREATININE 1.2 mg/dL (0.6-1.3); MAGNESIUM 1.9 mg/dL (1.8-2.4); PHOSPHOROUS 3.9 mg/dL (2.5-4.9); POTASSIUM 4.5 mmol/L (3.5-5.1); TOTAL PROTEIN, SERUM 7.5 g/dL (6.4-8.2)
--- NOTE | 2020-06-25 08:00 | NUR ---
PT is in no acute distress. Fall precaution implemented. Pt alert and oriented x 4. Call light is within reach. Discussed plan for pain mangement. PT agreeable with plan of care.
[2020-06-25] MEDS: OMEGA-3 FATTY ACIDS/FISH OIL CAPSULE PO SCH (08:50)
[2020-06-25] MEDS: DOCUSATE SODIUM 100 MG CAPSULE PO SCH ×2 (08:51→17:05)
[2020-06-25] MEDS: CHOLECALCIFEROL 1,000 UNIT TABLET PO SCH (08:51)
[2020-06-25] MEDS: MULTIVITAMINS,THERAPEUTIC TABLET PO SCH (08:51)
[2020-06-25] MEDS: CALCIUM CARBONATE 500 MG TABLET PO SCH ×2 (08:51→17:05)
[2020-06-25] MEDS: APIXABAN 5 MG TABLET PO SCH ×2 (08:53→20:33)
[2020-06-25 09:06] LABS: *IMMUNOGLOBULIN G, SERUM 1138 mg/dL (586-1602); IMMUNOGLOBULIN A, SERUM 452 mg/dL (64-422); IMMUNOGLOBULIN M, SERUM 68 mg/dL (26-217)
[2020-06-25] MEDS: METOPROLOL SUCCINATE XL 25 MG TAB.SR.24H PO SCH ×2 (10:50→20:34)
[2020-06-25 11:06] LABS: HEPATITIS B SURFACE AB Non Reactive (.); HEPATITIS B SURFACE AG Negative (Negative)
[2020-06-25 11:52] VITALS: BP 128/55
[2020-06-25 16:19] VITALS: BP 113/55
[2020-06-25] MEDS: MONTELUKAST SODIUM 10 MG TABLET PO SCH (17:05)
--- NOTE | 2020-06-25 18:59 | NUR ---
Pt's pain managed with ultram. Call light is within reach. PT tolerated physical therapy sessions.
[2020-06-25 20:00] VITALS: BP 121/63
[2020-06-25] MEDS: CETIRIZINE HCL 10 MG TABLET PO SCH (20:32)
[2020-06-25] MEDS: CULTURELLE CAPSULE PO SCH (20:32)
[2020-06-26] VITALS: BP 116/63
--- NOTE | 2020-06-26 01:00 | NUR ---
cC/O PAIN LEFT LEG, NOT RELIEVED BY ULTRAM. LEILANI HOSE FOUND ROLLED UP ABOVE THE ANKLE. LEILANI HOSE REMOVED. INSTRUCTED THAT IT WILL BE REPLACED IN AM. STATES THAT LEFT LEG FEELS MUCH BETTER.
[2020-06-26 04:00] VITALS: BP 128/58
[2020-06-26] MEDS: LEVOTHYROXINE SODIUM 25 MCG TABLET PO SCH (06:43)
[2020-06-26] MEDS: PANTOPRAZOLE SODIUM 40 MG TABLET.DR PO SCH (06:43)
[2020-06-26 07:02] LABS: BASOPHILS # (AUTO) 0.1 K/uL (0.0-8.0); BASOPHILS % (AUTO) 1.1 % (0.0-2.0); EOSINOPHILS # (AUTO) 0.2 K/uL (0.0-0.7); EOSINOPHILS % (AUTO) 2.3 % (0.0-7.0); HEMATOCRIT 30.1 % (31.2-41.9); HEMOGLOBIN 10.2 g/dL (10.9-14.3); LYMPHOCYTES # (AUTO) 1.8 K/uL (20.0-40.0); LYMPHOCYTES % (AUTO) 21.7 % (20.5-51.5); MEAN CORPUSCULAR HEMOGLOBIN 31.5 uug (24.7-32.8); MEAN CORPUSCULAR HGB CONC 34 g/dL (32.3-35.6); MEAN CORPUSCULAR VOLUME 92.6 fL (75.5-95.3); MONOCYTES # (AUTO) 0.9 K/uL (2.0-10.0); MONOCYTES % (AUTO) 10.3 % (0.0-11.0); NEUTROPHILS # (AUTO) 5.4 K/uL (1.8-8.9); NEUTROPHILS % (AUTO) 64.6 % (38.5-71.5); PLATELET COUNT (AUTO) 244 K/uL (179-408); RED BLOOD CELL COUNT(AUTO) 3.25 MIL/uL (3.63-4.92); WHITE BLOOD COUNT (AUTO) 8.4 K/uL (3.8-11.8)
[2020-06-26 07:14] LABS: CREATININE 1.1 mg/dL (0.6-1.3); MAGNESIUM 2.2 mg/dL (1.8-2.4); PHOSPHOROUS 3.7 mg/dL (2.5-4.9); POTASSIUM 4.7 mmol/L (3.5-5.1)
[2020-06-26] MEDS: DOCUSATE SODIUM 100 MG CAPSULE PO SCH ×2 (08:45→17:32)
[2020-06-26] MEDS: OMEGA-3 FATTY ACIDS/FISH OIL CAPSULE PO SCH (08:45)
[2020-06-26] MEDS: MULTIVITAMINS,THERAPEUTIC TABLET PO SCH (08:45)
[2020-06-26] MEDS: CHOLECALCIFEROL 1,000 UNIT TABLET PO SCH (08:45)
[2020-06-26] MEDS: CALCIUM CARBONATE 500 MG TABLET PO SCH ×2 (08:45→17:32)
[2020-06-26 08:54] VITALS: BP 103/51
[2020-06-26] MEDS: APIXABAN 5 MG TABLET PO SCH (09:31)
[2020-06-26 12:00] VITALS: BP 118/42
[2020-06-26] MEDS ORDERED: BISA10SU12 RC (15:27)
[2020-06-26] MEDS ORDERED: OMEG1CAP PO (15:27)
[2020-06-26] MEDS ORDERED: MEGE40TA19 PO (15:27)
[2020-06-26] MEDS ORDERED: PANT40TA2 PO (15:27)
[2020-06-26] MEDS ORDERED: TEMA7.5C PO (15:27)
[2020-06-26] MEDS ORDERED: TRAM50TA2 PO (15:27)
[2020-06-26] MEDS ORDERED: APIX5TAB PO (15:27)
[2020-06-26 16:00] VITALS: BP 129/56
--- NOTE | 2020-06-26 16:49 | NUR ---
0700 Received PT in bed, awake AO X 3. Pt is cooperative and pleasant. No signs of distress or No shortness of breath noted. Safety measures provided, call light within reach, bed low and locked. 1030 Pt was seen by physical therapist. Tolerated well. Blood pressure noted low. PT put back in bed, safety measure provided, call light within reach, bed low and locked. Will continue to monitor. 1600 Per MD's order, transfer PT to acute rehab services. Paperwork completed. PT aware of transfer services. Call light within reach
[2020-06-26] MEDS: TRAMADOL HCL 50 MG TABLET PO PRN (17:32)
[2020-06-26] MEDS: MONTELUKAST SODIUM 10 MG TABLET PO SCH (17:32)
--- NOTE | 2020-06-26 17:35 | NUR ---
PT complaining of pain at the knees 01/27 with throbbing sensations. Administered Ultram per MD's order. Will reassess in an hour. PT in bed, awake AO X 3. PT stated that they feel good because they had the appetite today versus other days. PT ate food provided by family member. Safety measures provided, call light within reach, bed low and lock. Will continue to monitor.
[2020-06-26] MEDS ORDERED: ACET325T53 PO (20:41)
[2020-06-27 07:10] LABS: A/G RATIO 1.3 (0.7-1.7); ALBUMIN 3.5 g/dL (2.9-4.4); ALPHA-1-GLOBULIN 0.2 g/dL (0.0-0.4); ALPHA-2-GLOBULIN 0.5 g/dL (0.4-1.0); BETA GLOBULIN 0.7 g/dL (0.7-1.3); GAMMA GLOBULIN 1.3 g/dL (0.4-1.8); GLOBULIN, TOTAL 2.7 g/dL (2.2-3.9); M-SPIKE 1.1 g/dL (Not Observed)
== END 2020-06-26 19:25 | DRG 175 ==
LOC: TELE-TD3 09:56 → TELE3 09:57 → CCU 18:33 → TELE3 06-23 07:59
PROVIDERS: ADMIT Internal Medicine; ATTEND Internal Medicine
DX: I26.99 Other pulmonary embolism without acute cor pulmonale (principal); E43 Unspecified severe protein-calorie malnutrition; I21.A1 Myocardial infarction type 2; D68.69 Other thrombophilia; E87.1 Hypo-osmolality and hyponatremia; N17.9 Acute kidney failure, unspecified; Z74.09 Other reduced mobility; D64.9 Anemia, unspecified; E78.5 Hyperlipidemia, unspecified; E03.9 Hypothyroidism, unspecified; K59.00 Constipation, unspecified; J44.9 Chronic obstructive pulmonary disease, unspecified; Z68.24 Body mass index [BMI] 24.0-24.9, adult; R00.0 Tachycardia, unspecified; Z96.652 Presence of left artificial knee joint; Z90.49 Acquired absence of other specified parts of digestive tract; Z85.840 Personal history of malignant neoplasm of eye; N28.1 Cyst of kidney, acquired; K76.0 Fatty (change of) liver, not elsewhere classified; M19.90 Unspecified osteoarthritis, unspecified site; D69.59 Other secondary thrombocytopenia; R53.1 Weakness; K44.9 Diaphragmatic hernia without obstruction or gangrene; I12.9 Hypertensive chronic kidney disease with stage 1 through stage 4 chronic kidney disease, or unspecified chronic kidney disease; Z20.828 Contact with and (suspected) exposure to other viral communicable diseases; N18.9 Chronic kidney disease, unspecified
CPT/HCPCS: 36415; 70030-TC; 70450; 71045; 71275; 76700; 82378; 82747; 82784; 83550; 83605; 83735; 84100; 84155; 84165; 84443; 85014; 85025; 85520; 85730; 86334; 86706; 86803; 87086; 87340; 93307; G0378; J1644; J7050; Q9967

== ENCOUNTER 2020-06-26 13:09 | Inpatient (IN) | payer MEDICARE, BC ==
[~2020-06-26] VITALS: Ht 154.9 cm; Wt 58.8 kg
[2020-06-26] MEDS ORDERED: TRAM50TA2 PO (15:27)
[2020-06-26] MEDS ORDERED: PANT40TA2 PO (15:27)
[2020-06-26] MEDS ORDERED: BISA10SU12 RC (15:27)
[2020-06-26] MEDS ORDERED: MEGE40TA19 PO (15:27)
[2020-06-26] MEDS ORDERED: TEMA7.5C PO (15:27)
[2020-06-26] MEDS ORDERED: OMEG1CAP PO (15:27)
[2020-06-26] MEDS ORDERED: APIX5TAB PO (15:27)
--- NOTE | 2020-06-26 19:40 | NUR ---
Sleeping during initial rounds but awakened when name called. Denies any pain/discomforts at this time. Informed patient that I'll be taking care of her this time. Routine admission care done. Plan of care initiated. Patient cooperative but noticed kept asking the same question few times. Safety measures and fall prevention maintained. Continue care as planned.
[2020-06-26] MEDS ORDERED: Z GUARD REMEDY PASTE 57 GM TUBE TOP PRN (20:30)
[2020-06-26] MEDS ORDERED: ACET325T53 PO (20:41)
[2020-06-26 20:55] VITALS: BP 116/52
[2020-06-26] MEDS ORDERED: BISACODYL 10 MG SUPP.RECT RC PRN (22:30)
[2020-06-26] MEDS ORDERED: TEMAZEPAM 7.5 MG CAPSULE PO PRN (22:30)
[2020-06-26] MEDS ORDERED: MIRALAX 17 GM POWD.PACK GT PRN (22:30)
[2020-06-27 04:55] VITALS: BP 151/60
[2020-06-27] MEDS: PANTOPRAZOLE SODIUM 40 MG TABLET.DR PO SCH (05:52)
[2020-06-27] MEDS: LEVOTHYROXINE SODIUM 25 MCG TABLET PO SCH (05:55)
--- NOTE | 2020-06-27 06:09 | NUR ---
Shift End Report: Vs stable. Slept well. No complaint presented throughout the night. No significant event reported. Continue care as planned.
[2020-06-27 08:30] VITALS: BP 88/50
[2020-06-27] MEDS ORDERED: APIXABAN 5 MG TABLET PO SCH (09:00)
[2020-06-27] MEDS: DOCUSATE SODIUM 100 MG CAPSULE PO SCH ×2 (10:43→16:58)
[2020-06-27] MEDS: CHOLECALCIFEROL 1,000 UNIT TABLET PO SCH (10:43)
[2020-06-27] MEDS: MONTELUKAST SODIUM 10 MG TABLET PO SCH (10:44)
[2020-06-27] MEDS: MEGESTROL ACETATE 20 MG TABLET PO SCH (10:44)
[2020-06-27] MEDS: OMEGA-3 FATTY ACIDS/FISH OIL CAPSULE PO SCH (10:44)
[2020-06-27] MEDS: CALCIUM CARBONATE 500 MG TABLET PO SCH ×2 (10:45→16:58)
[2020-06-27] MEDS: ACETAMINOPHEN 325 MG TABLET PO PRN (10:45)
[2020-06-27] MEDS: MULTIVITAMINS,THERAPEUTIC TABLET PO SCH (10:45)
--- NOTE | 2020-06-27 15:01 | NUR ---
Weighbridge Operator Note: SW provided patient with the following caregiving resources: [facility]; ([phone]), [facility]; ([phone]), [facility]; ([phone]). wireworker will continue to remain available to patient and provide ongoing supportive counseling and assess for any psychosocial needs. wireworker will encourage patient to comply with ARU goals of care.
--- NOTE | 2020-06-27 15:01 | NUR ---
Family Contact: SW called the pts son, Cruz ([phone]), and discussed the pts needs once she returns to his home which include caregiving, physical therapy, and items like a cane, walker and wheelchair. SW provided the pt with caregiving resources.
[2020-06-27 15:48] VITALS: BP 117/48
--- NOTE | 2020-06-27 18:22 | NUR ---
0745 received PT in bed, awake AO X 4. PT is hopeful and pleasant. PT stated they had enough sleep. Goal is to work with physical therapy. Safety measures provided, call light within reach, bed low and lock. 0900 PT left with physical therapy. 1030 4/10 pain stated by PT. provided PT with pain medication per MD's order and gave ice for left knee (surgical site). Will continue to monitor. 1800 PT in bed, no pain noted, but requested for ice for left knee. Safety measures provided, call light within reach, bed low and lock.
[2020-06-27 20:00] VITALS: BP 133/54
[2020-06-27] MEDS: CULTURELLE CAPSULE PO SCH (20:54)
[2020-06-27] MEDS: APIXABAN 2.5 MG TABLET PO SCH (20:55)
[2020-06-27] MEDS: CETIRIZINE HCL 10 MG TABLET PO SCH (20:55)
[2020-06-27] MEDS: DULOXETINE 20 MG CAPSULE.DR PO SCH (20:56)
[2020-06-27] MEDS: METOPROLOL SUCCINATE XL 25 MG TAB.SR.24H PO SCH (20:56)
[2020-06-27] MEDS: TRAMADOL HCL 50 MG TABLET PO PRN (21:05)
[2020-06-28 04:00] VITALS: BP 112/40
[2020-06-28] MEDS: LEVOTHYROXINE SODIUM 25 MCG TABLET PO SCH (05:44)
[2020-06-28] MEDS: PANTOPRAZOLE SODIUM 40 MG TABLET.DR PO SCH (05:45)
[2020-06-28 08:00] VITALS: BP 118/49
[2020-06-28] MEDS: MONTELUKAST SODIUM 10 MG TABLET PO SCH (08:29)
[2020-06-28] MEDS: DOCUSATE SODIUM 100 MG CAPSULE PO SCH ×2 (08:29→17:28)
[2020-06-28] MEDS: MULTIVITAMINS,THERAPEUTIC TABLET PO SCH (08:29)
[2020-06-28] MEDS: CHOLECALCIFEROL 1,000 UNIT TABLET PO SCH (08:30)
[2020-06-28] MEDS: MEGESTROL ACETATE 20 MG TABLET PO SCH (08:30)
[2020-06-28] MEDS: CALCIUM CARBONATE 500 MG TABLET PO SCH ×2 (08:30→17:28)
[2020-06-28] MEDS: OMEGA-3 FATTY ACIDS/FISH OIL CAPSULE PO SCH (08:30)
[2020-06-28] MEDS: APIXABAN 2.5 MG TABLET PO SCH ×2 (08:34→20:57)
[2020-06-28] MEDS: TRAMADOL HCL 50 MG TABLET PO PRN (08:37)
[2020-06-28] MEDS ORDERED: LACTULOSE 20 G/30 ML LIQUID UDC PO PRN (11:15)
--- NOTE | 2020-06-28 14:26 | NUR ---
INTERDISCIPLINARY TEAM CONFERENCE
[2020-06-28 15:26] VITALS: BP 108/50
--- NOTE | 2020-06-28 19:45 | NUR ---
Patient son rCuz -[phone] called and gave telephone consent re: Plan for Bone Marrow Biopsy and Aspiration and witnessed by another RN, Serafin Etienne.
[2020-06-28 20:21] VITALS: BP 119/52
[2020-06-28] MEDS: CULTURELLE CAPSULE PO SCH (20:56)
[2020-06-28] MEDS: DULOXETINE 20 MG CAPSULE.DR PO SCH (20:56)
[2020-06-28] MEDS: METOPROLOL SUCCINATE XL 25 MG TAB.SR.24H PO SCH (21:00)
[2020-06-28] MEDS: CETIRIZINE HCL 10 MG TABLET PO SCH (21:00)
[2020-06-28] MEDS: ACETAMINOPHEN 325 MG TABLET PO PRN (21:06)
[2020-06-29 04:27] VITALS: BP 115/34
[2020-06-29] MEDS: PANTOPRAZOLE SODIUM 40 MG TABLET.DR PO SCH (05:47)
[2020-06-29] MEDS: LEVOTHYROXINE SODIUM 25 MCG TABLET PO SCH (05:47)
[2020-06-29] MEDS ORDERED: LIDOCAINE 1%-EPI 1:100,000 20 ML VIAL MC ONE (07:15)
[2020-06-29 08:00] VITALS: BP 110/50
[2020-06-29] MEDS: MULTIVITAMINS,THERAPEUTIC TABLET PO SCH (08:06)
[2020-06-29] MEDS: OMEGA-3 FATTY ACIDS/FISH OIL CAPSULE PO SCH (08:06)
[2020-06-29] MEDS: MONTELUKAST SODIUM 10 MG TABLET PO SCH (08:07)
[2020-06-29] MEDS: DOCUSATE SODIUM 100 MG CAPSULE PO SCH ×2 (08:07→17:09)
[2020-06-29] MEDS: CALCIUM CARBONATE 500 MG TABLET PO SCH ×2 (08:07→17:09)
[2020-06-29] MEDS: MEGESTROL ACETATE 20 MG TABLET PO SCH (08:07)
[2020-06-29] MEDS: CHOLECALCIFEROL 1,000 UNIT TABLET PO SCH (08:07)
[2020-06-29 08:29] LABS: CREATININE 1.2 mg/dL (0.6-1.3); POTASSIUM 5.2 mmol/L (3.5-5.1)
[2020-06-29 08:48] LABS: BASOPHILS # (AUTO) 0.1 K/uL (0.0-8.0); BASOPHILS % (AUTO) 0.9 % (0.0-2.0); EOSINOPHILS # (AUTO) 0.1 K/uL (0.0-0.7); HEMATOCRIT 27.9 % (31.2-41.9); HEMOGLOBIN 9.5 g/dL (10.9-14.3); LYMPHOCYTES # (AUTO) 1.8 K/uL (20.0-40.0); LYMPHOCYTES % (AUTO) 28.4 % (20.5-51.5); MEAN CORPUSCULAR HEMOGLOBIN 31.4 uug (24.7-32.8); MEAN CORPUSCULAR HGB CONC 34 g/dL (32.3-35.6); MONOCYTES % (AUTO) 16.3 % (0.0-11.0); NEUTROPHILS # (AUTO) 3.3 K/uL (1.8-8.9); NEUTROPHILS % (AUTO) 52.4 % (38.5-71.5); PLATELET COUNT (AUTO) 344 K/uL (179-408); RED BLOOD CELL COUNT(AUTO) 3.03 MIL/uL (3.63-4.92); WHITE BLOOD COUNT (AUTO) 6.3 K/uL (3.8-11.8)
[2020-06-29] MEDS: ENOXAPARIN SODIUM 60 MG/0.6 ML DISP.SYRIN SQ SCH (09:47)
[2020-06-29] MEDS ORDERED: SODIUM POLYSTYRENE SULFONATE 15 G/60 ML LIQUID UDC PO ONE (10:00)
--- NOTE | 2020-06-29 14:29 | NUR ---
INDIVIDUALIZED PLAN OF CARE
[2020-06-29 15:22] VITALS: BP 113/43
[2020-06-29] MEDS: CETIRIZINE HCL 10 MG TABLET PO SCH (20:02)
[2020-06-29] MEDS: DULOXETINE 20 MG CAPSULE.DR PO SCH (20:02)
[2020-06-29] MEDS: CULTURELLE CAPSULE PO SCH (20:02)
[2020-06-29] MEDS: METOPROLOL SUCCINATE XL 25 MG TAB.SR.24H PO SCH (20:03)
[2020-06-29 20:16] VITALS: BP 129/55
[2020-06-29 20:28] LABS: EOSINOPHILS % (MANUAL) 3 % (0-8); LYMPHOCYTES % (MANUAL) 38 % (20-40); MONOCYTES % (MANUAL) 6 % (2-10); NEUTROPHILS % (MANUAL) 53 % (42-75)
[2020-06-30 04:47] VITALS: BP 119/44
[2020-06-30] MEDS: PANTOPRAZOLE SODIUM 40 MG TABLET.DR PO SCH (06:12)
[2020-06-30] MEDS: LEVOTHYROXINE SODIUM 25 MCG TABLET PO SCH (06:12)
[2020-06-30 08:07] VITALS: BP 123/43
[2020-06-30 08:28] LABS: BASOPHILS % (AUTO) 0.5 % (0.0-2.0); EOSINOPHILS # (AUTO) 0.1 K/uL (0.0-0.7); EOSINOPHILS % (AUTO) 1.2 % (0.0-7.0); HEMOGLOBIN 9.8 g/dL (10.9-14.3); LYMPHOCYTES # (AUTO) 1.5 K/uL (20.0-40.0); MEAN CORPUSCULAR HEMOGLOBIN 32.1 uug (24.7-32.8); MEAN CORPUSCULAR HGB CONC 35 g/dL (32.3-35.6); MEAN CORPUSCULAR VOLUME 91.6 fL (75.5-95.3); MONOCYTES % (AUTO) 12.6 % (0.0-11.0); NEUTROPHILS # (AUTO) 5.2 K/uL (1.8-8.9); NEUTROPHILS % (AUTO) 66.7 % (38.5-71.5); PLATELET COUNT (AUTO) 305 K/uL (179-408); RED BLOOD CELL COUNT(AUTO) 3.06 MIL/uL (3.63-4.92); WHITE BLOOD COUNT (AUTO) 7.8 K/uL (3.8-11.8)
[2020-06-30 08:44] LABS: MAGNESIUM 2.1 mg/dL (1.8-2.4); PHOSPHOROUS 3.8 mg/dL (2.5-4.9); POTASSIUM 4.2 mmol/L (3.5-5.1)
[2020-06-30] MEDS: CHOLECALCIFEROL 1,000 UNIT TABLET PO SCH (08:55)
[2020-06-30] MEDS: MIRALAX 17 GM POWD.PACK GT SCH (08:55)
[2020-06-30] MEDS: MEGESTROL ACETATE 20 MG TABLET PO SCH (08:57)
[2020-06-30] MEDS: OMEGA-3 FATTY ACIDS/FISH OIL CAPSULE PO SCH (08:57)
[2020-06-30] MEDS: CALCIUM CARBONATE 500 MG TABLET PO SCH ×2 (08:57→17:19)
[2020-06-30] MEDS: DOCUSATE SODIUM 100 MG CAPSULE PO SCH ×2 (08:57→17:19)
[2020-06-30] MEDS: MULTIVITAMINS,THERAPEUTIC TABLET PO SCH (08:57)
[2020-06-30] MEDS: MONTELUKAST SODIUM 10 MG TABLET PO SCH (08:57)
[2020-06-30] MEDS: ENOXAPARIN SODIUM 60 MG/0.6 ML DISP.SYRIN SQ SCH ×2 (09:05→20:34)
[2020-06-30] MEDS: TRAMADOL HCL 50 MG TABLET PO PRN (09:36)
[2020-06-30 15:37] VITALS: BP 102/40
--- NOTE | 2020-06-30 17:00 | NUR ---
SPOKE WITH SON. NO C/O DISCOMFORT. VOIDING QS.
[2020-06-30] MEDS: ENSURE ENLIVE (VAN) 240 ML LIQUID PO SCH (17:19)
--- NOTE | 2020-06-30 19:30 | NUR ---
Sleeping during initial rounds. No s/s of respiratory distress. Safety measures and fall prevention maintained. Continue care as planned.
[2020-06-30 20:00] VITALS: BP 126/49
[2020-06-30] MEDS: CETIRIZINE HCL 10 MG TABLET PO SCH (20:32)
[2020-06-30] MEDS: CULTURELLE CAPSULE PO SCH (20:32)
[2020-06-30] MEDS: DULOXETINE 20 MG CAPSULE.DR PO SCH (20:32)
[2020-06-30] MEDS: METOPROLOL SUCCINATE XL 25 MG TAB.SR.24H PO SCH (20:33)
[2020-07-01 04:46] VITALS: BP 114/46
[2020-07-01] MEDS: PANTOPRAZOLE SODIUM 40 MG TABLET.DR PO SCH (06:33)
[2020-07-01] MEDS: LEVOTHYROXINE SODIUM 25 MCG TABLET PO SCH (06:33)
--- NOTE | 2020-07-01 06:40 | NUR ---
Shift End Report: No significant event reported all night. Continue current rehab plan of care. Vs stable.
[2020-07-01 07:47] LABS: BASOPHILS % (AUTO) 0.7 % (0.0-2.0); EOSINOPHILS # (AUTO) 0.1 K/uL (0.0-0.7); EOSINOPHILS % (AUTO) 1.5 % (0.0-7.0); HEMATOCRIT 27.1 % (31.2-41.9); HEMOGLOBIN 9.3 g/dL (10.9-14.3); LYMPHOCYTES % (AUTO) 31.1 % (20.5-51.5); MEAN CORPUSCULAR HEMOGLOBIN 31.6 uug (24.7-32.8); MEAN CORPUSCULAR HGB CONC 34 g/dL (32.3-35.6); MEAN CORPUSCULAR VOLUME 92.1 fL (75.5-95.3); MONOCYTES # (AUTO) 0.9 K/uL (2.0-10.0); MONOCYTES % (AUTO) 14.4 % (0.0-11.0); NEUTROPHILS # (AUTO) 3.3 K/uL (1.8-8.9); NEUTROPHILS % (AUTO) 52.3 % (38.5-71.5); PLATELET COUNT (AUTO) 224 K/uL (179-408); RED BLOOD CELL COUNT(AUTO) 2.94 MIL/uL (3.63-4.92); WHITE BLOOD COUNT (AUTO) 6.4 K/uL (3.8-11.8)
[2020-07-01 08:00] VITALS: BP 102/43
[2020-07-01] MEDS: ENSURE ENLIVE (VAN) 240 ML LIQUID PO SCH ×2 (08:32→16:34)
[2020-07-01] MEDS: MULTIVITAMINS,THERAPEUTIC TABLET PO SCH (08:32)
[2020-07-01] MEDS: MEGESTROL ACETATE 20 MG TABLET PO SCH (08:33)
[2020-07-01] MEDS: CHOLECALCIFEROL 1,000 UNIT TABLET PO SCH (08:33)
[2020-07-01] MEDS: CALCIUM CARBONATE 500 MG TABLET PO SCH ×2 (08:34→16:34)
[2020-07-01] MEDS: OMEGA-3 FATTY ACIDS/FISH OIL CAPSULE PO SCH (08:34)
[2020-07-01] MEDS: DOCUSATE SODIUM 100 MG CAPSULE PO SCH ×2 (08:34→16:34)
[2020-07-01] MEDS: MIRALAX 17 GM POWD.PACK GT SCH (08:34)
[2020-07-01] MEDS: ENOXAPARIN SODIUM 60 MG/0.6 ML DISP.SYRIN SQ SCH ×2 (08:35→20:35)
[2020-07-01 15:51] VITALS: BP 126/39
[2020-07-01] MEDS: MONTELUKAST SODIUM 10 MG TABLET PO SCH (16:34)
[2020-07-01 20:00] VITALS: BP 103/54
[2020-07-01] MEDS: DULOXETINE 20 MG CAPSULE.DR PO SCH (20:05)
[2020-07-01] MEDS: CULTURELLE CAPSULE PO SCH (20:05)
[2020-07-01] MEDS: CETIRIZINE HCL 10 MG TABLET PO SCH (20:05)
[2020-07-01] MEDS: METOPROLOL SUCCINATE XL 25 MG TAB.SR.24H PO SCH (20:32)
[2020-07-01] MEDS: ACETAMINOPHEN 325 MG TABLET PO PRN (20:56)
[2020-07-02 04:00] VITALS: BP 131/51
[2020-07-02] MEDS: PANTOPRAZOLE SODIUM 40 MG TABLET.DR PO SCH (06:12)
[2020-07-02] MEDS: LEVOTHYROXINE SODIUM 25 MCG TABLET PO SCH (06:12)
[2020-07-02 06:58] LABS: POTASSIUM 3.9 mmol/L (3.5-5.1)
[2020-07-02 07:11] LABS: BASOPHILS % (AUTO) 0.6 % (0.0-2.0); EOSINOPHILS # (AUTO) 0.1 K/uL (0.0-0.7); EOSINOPHILS % (AUTO) 1.9 % (0.0-7.0); HEMATOCRIT 27.1 % (31.2-41.9); HEMOGLOBIN 9.4 g/dL (10.9-14.3); LYMPHOCYTES # (AUTO) 1.7 K/uL (20.0-40.0); LYMPHOCYTES % (AUTO) 37.1 % (20.5-51.5); MEAN CORPUSCULAR HEMOGLOBIN 32.1 uug (24.7-32.8); MEAN CORPUSCULAR HGB CONC 35 g/dL (32.3-35.6); MEAN CORPUSCULAR VOLUME 92.6 fL (75.5-95.3); MONOCYTES # (AUTO) 0.8 K/uL (2.0-10.0); MONOCYTES % (AUTO) 16.4 % (0.0-11.0); PLATELET COUNT (AUTO) 196 K/uL (179-408); RED BLOOD CELL COUNT(AUTO) 2.92 MIL/uL (3.63-4.92); WHITE BLOOD COUNT (AUTO) 4.6 K/uL (3.8-11.8)
[2020-07-02 08:00] VITALS: BP 124/53
[2020-07-02] MEDS: ACETAMINOPHEN 325 MG TABLET PO PRN (11:01)
[2020-07-02] MEDS: DOCUSATE SODIUM 100 MG CAPSULE PO SCH ×2 (11:01→17:39)
[2020-07-02] MEDS: CHOLECALCIFEROL 1,000 UNIT TABLET PO SCH (11:02)
[2020-07-02] MEDS: MEGESTROL ACETATE 20 MG TABLET PO SCH (11:02)
[2020-07-02] MEDS: MULTIVITAMINS,THERAPEUTIC TABLET PO SCH (11:03)
[2020-07-02] MEDS: CALCIUM CARBONATE 500 MG TABLET PO SCH ×2 (11:04→17:39)
[2020-07-02] MEDS: OMEGA-3 FATTY ACIDS/FISH OIL CAPSULE PO SCH (11:04)
[2020-07-02] MEDS: MIRALAX 17 GM POWD.PACK GT SCH (11:04)
[2020-07-02] MEDS: ENSURE ENLIVE (VAN) 240 ML LIQUID PO SCH ×2 (11:05→17:59)
[2020-07-02] MEDS: ENOXAPARIN SODIUM 60 MG/0.6 ML DISP.SYRIN SQ SCH ×2 (11:12→21:03)
[2020-07-02 15:32] VITALS: BP 125/54
[2020-07-02] MEDS: MONTELUKAST SODIUM 10 MG TABLET PO SCH (17:39)
[2020-07-02 17:49] LABS: LYMPHOCYTES % (MANUAL) 47 % (20-40); MONOCYTES % (MANUAL) 12 % (2-10); NEUTROPHILS % (MANUAL) 41 % (42-75)
[2020-07-02 20:00] VITALS: BP 135/57
[2020-07-02] MEDS: METOPROLOL SUCCINATE XL 25 MG TAB.SR.24H PO SCH (21:02)
[2020-07-02] MEDS: CETIRIZINE HCL 10 MG TABLET PO SCH (21:02)
[2020-07-02] MEDS: CULTURELLE CAPSULE PO SCH (21:02)
[2020-07-02] MEDS: DULOXETINE 20 MG CAPSULE.DR PO SCH (21:02)
[2020-07-03 05:01] VITALS: BP 120/56
--- NOTE | 2020-07-03 06:00 | NUR ---
PATIENT HAD INTERMITTENT SLEEP DURING THE NIGHT. NO ACUTE OR RESPIRATORY DISTRESS. PATIENT FOR BONE MARROW ASPIRATION LATER TODAY. CALLED LAB AND REQUESTED FOR CONTAINER FOR 24 HR URINE FOR UPEP AND IFA. PER KAYCE FROM LAB, SHE WILL HAVE TO FIND OUT WHAT KIND OF CONTAINER IS NEEDED FOR THIS TEST AND WILL GIVE CALL BACK. WILL ENDORSE ACCORDINGLY.
[2020-07-03] MEDS: LEVOTHYROXINE SODIUM 25 MCG TABLET PO SCH (06:13)
[2020-07-03] MEDS: PANTOPRAZOLE SODIUM 40 MG TABLET.DR PO SCH (06:13)
[2020-07-03 08:00] VITALS: BP 120/48
[2020-07-03] MEDS: CHOLECALCIFEROL 1,000 UNIT TABLET PO SCH (08:32)
[2020-07-03] MEDS: OMEGA-3 FATTY ACIDS/FISH OIL CAPSULE PO SCH (08:32)
[2020-07-03] MEDS: MIRALAX 17 GM POWD.PACK GT SCH (08:33)
[2020-07-03] MEDS: MULTIVITAMINS,THERAPEUTIC TABLET PO SCH (08:33)
[2020-07-03] MEDS: ENSURE ENLIVE (VAN) 240 ML LIQUID PO SCH ×2 (08:33→16:25)
[2020-07-03] MEDS: DOCUSATE SODIUM 100 MG CAPSULE PO SCH ×2 (08:33→16:24)
[2020-07-03] MEDS: MEGESTROL ACETATE 20 MG TABLET PO SCH (08:33)
[2020-07-03] MEDS: CALCIUM CARBONATE 500 MG TABLET PO SCH ×2 (08:34→16:24)
[2020-07-03] MEDS: ENOXAPARIN SODIUM 60 MG/0.6 ML DISP.SYRIN SQ SCH (08:34)
--- NOTE | 2020-07-03 14:30 | NUR ---
ORDER OBTAINED FROM LIANG CONTE'S PROCEDURES TECH, OK TO REMOVE ZAINA.
--- NOTE | 2020-07-03 14:55 | NUR ---
anitha removed, cleaned with betadine, dressing applied, incision is well approximated, clean and dry.
[2020-07-03 15:52] VITALS: BP 130/44
[2020-07-03 17:30] LABS: BASOPHILS % (AUTO) 0.5 % (0.0-2.0); EOSINOPHILS # (AUTO) 0.1 K/uL (0.0-0.7); EOSINOPHILS % (AUTO) 2.1 % (0.0-7.0); HEMATOCRIT 27.6 % (31.2-41.9); HEMOGLOBIN 9.2 g/dL (10.9-14.3); LYMPHOCYTES # (AUTO) 1.6 K/uL (20.0-40.0); LYMPHOCYTES % (AUTO) 25.7 % (20.5-51.5); MEAN CORPUSCULAR HGB CONC 33 g/dL (32.3-35.6); MEAN CORPUSCULAR VOLUME 92.8 fL (75.5-95.3); MONOCYTES # (AUTO) 1.1 K/uL (2.0-10.0); MONOCYTES % (AUTO) 17.9 % (0.0-11.0); NEUTROPHILS # (AUTO) 3.4 K/uL (1.8-8.9); NEUTROPHILS % (AUTO) 53.8 % (38.5-71.5); PLATELET COUNT (AUTO) 156 K/uL (179-408); RED BLOOD CELL COUNT(AUTO) 2.97 MIL/uL (3.63-4.92); WHITE BLOOD COUNT (AUTO) 6.2 K/uL (3.8-11.8)
[2020-07-03 17:39] LABS: BILIRUBIN,TOTAL 0.2 mg/dL (0.2-1.0)
[2020-07-03] MEDS: MONTELUKAST SODIUM 10 MG TABLET PO SCH (17:39)
--- NOTE | 2020-07-03 17:49 | NUR ---
NO CHANGES NOTED DURING SHIFT, CONTINUOUS 24 HOUR URINE COLLECTION, PATIENT IS AMBULATORY, TOLERATED PT, OT SERVICES WELL
[2020-07-03] MEDS: TRAMADOL HCL 50 MG TABLET PO PRN (18:15)
--- NOTE | 2020-07-03 19:39 | NUR ---
BONE MARROW BIOPSY DONE BY DR VALLE BEDSIDE, PATIENT TOLERATED WELL, NO ACUTE DISTRESS NOTED, ENDORSED TO NEXT SHIFT TO CONTINUE TO MONITOR
[2020-07-03 20:46] VITALS: BP 122/63
[2020-07-03 20:56] LABS: BASOPHILS % (AUTO) 0.5 % (0.0-2.0); EOSINOPHILS # (AUTO) 0.1 K/uL (0.0-0.7); EOSINOPHILS % (AUTO) 1.3 % (0.0-7.0); HEMATOCRIT 27.8 % (31.2-41.9); HEMOGLOBIN 9.4 g/dL (10.9-14.3); LYMPHOCYTES # (AUTO) 1.2 K/uL (20.0-40.0); LYMPHOCYTES % (AUTO) 19.9 % (20.5-51.5); MEAN CORPUSCULAR HEMOGLOBIN 31.1 uug (24.7-32.8); MEAN CORPUSCULAR HGB CONC 34 g/dL (32.3-35.6); MEAN CORPUSCULAR VOLUME 92.2 fL (75.5-95.3); MONOCYTES % (AUTO) 16.7 % (0.0-11.0); NEUTROPHILS # (AUTO) 3.6 K/uL (1.8-8.9); NEUTROPHILS % (AUTO) 61.6 % (38.5-71.5); PLATELET COUNT (AUTO) 158 K/uL (179-408); RED BLOOD CELL COUNT(AUTO) 3.02 MIL/uL (3.63-4.92); WHITE BLOOD COUNT (AUTO) 5.9 K/uL (3.8-11.8)
[2020-07-03] MEDS: CULTURELLE CAPSULE PO SCH (21:43)
[2020-07-03] MEDS: CETIRIZINE HCL 10 MG TABLET PO SCH (21:43)
[2020-07-03] MEDS: DULOXETINE 20 MG CAPSULE.DR PO SCH (21:43)
[2020-07-03] MEDS: METOPROLOL SUCCINATE XL 25 MG TAB.SR.24H PO SCH (21:43)
[2020-07-03 22:49] VITALS: BP 125/48
--- NOTE | 2020-07-03 23:00 | NUR ---
All due medication administered and tolerated well. Patient VSS, no acute distress noted. Denies any pain. Safety measure maintained. No bleeding noted at biopsy site, covered with big band aid. Assisted pt to the bathroom x2. Call light and all personal items within pt reach. Will continue to monitor.
[2020-07-03 23:06] LABS: LYMPHOCYTES % (MANUAL) 17 % (20-40); NEUTROPHILS % (MANUAL) 62 % (42-75)
[2020-07-03 23:07] LABS: EOSINOPHILS % (MANUAL) 1 % (0-8); MONOCYTES % (MANUAL) 20 % (2-10)
[2020-07-03 23:16] LABS: BAND % (MANUAL) 8 % (0-10); LYMPHOCYTES % (MANUAL) 23 % (20-40); MONOCYTES % (MANUAL) 22 % (2-10); NEUTROPHILS % (MANUAL) 47 % (42-75)
--- NOTE | 2020-07-04 02:38 | NUR ---
Received patient lying supine. S/p bone armando biopsy . No acute distress noted, VSS. Pt denies any pain or discomfort at this moment. Received phone order from Dr. Eddy for cytology and CBC to put in. Lab collected samples. Safety measures maintained. pt is resting comfortably. Addendum: 07/04/20 at 0243 by ARLEN LONGO RN RN @2030
[2020-07-04 04:00] VITALS: BP 146/53
[2020-07-04] MEDS: LEVOTHYROXINE SODIUM 25 MCG TABLET PO SCH (06:33)
[2020-07-04] MEDS: PANTOPRAZOLE SODIUM 40 MG TABLET.DR PO SCH (06:33)
[2020-07-04 07:34] LABS: BASOPHILS % (AUTO) 0.5 % (0.0-2.0); EOSINOPHILS # (AUTO) 0.1 K/uL (0.0-0.7); HEMATOCRIT 28.9 % (31.2-41.9); HEMOGLOBIN 10.3 g/dL (10.9-14.3); LYMPHOCYTES # (AUTO) 1.7 K/uL (20.0-40.0); LYMPHOCYTES % (AUTO) 31.2 % (20.5-51.5); MEAN CORPUSCULAR HEMOGLOBIN 33.3 uug (24.7-32.8); MEAN CORPUSCULAR HGB CONC 36 g/dL (32.3-35.6); MEAN CORPUSCULAR VOLUME 93.3 fL (75.5-95.3); MONOCYTES % (AUTO) 17.6 % (0.0-11.0); NEUTROPHILS # (AUTO) 2.7 K/uL (1.8-8.9); NEUTROPHILS % (AUTO) 48.7 % (38.5-71.5); PLATELET COUNT (AUTO) 163 K/uL (179-408); WHITE BLOOD COUNT (AUTO) 5.5 K/uL (3.8-11.8)
[2020-07-04 08:00] VITALS: BP 118/47
[2020-07-04] MEDS: DOCUSATE SODIUM 100 MG CAPSULE PO SCH ×2 (08:39→16:37)
[2020-07-04] MEDS: CHOLECALCIFEROL 1,000 UNIT TABLET PO SCH (08:40)
[2020-07-04] MEDS: OMEGA-3 FATTY ACIDS/FISH OIL CAPSULE PO SCH (08:40)
[2020-07-04] MEDS: MEGESTROL ACETATE 20 MG TABLET PO SCH (08:40)
[2020-07-04] MEDS: ENSURE ENLIVE (VAN) 240 ML LIQUID PO SCH ×2 (08:40→16:37)
[2020-07-04] MEDS: CALCIUM CARBONATE 500 MG TABLET PO SCH ×2 (08:40→16:37)
[2020-07-04] MEDS: MULTIVITAMINS,THERAPEUTIC TABLET PO SCH (08:40)
[2020-07-04 08:41] LABS: NEUTROPHILS % (MANUAL) 0 % (42-75)
[2020-07-04] MEDS: MIRALAX 17 GM POWD.PACK GT SCH (08:41)
[2020-07-04] MEDS: APIXABAN 2.5 MG TABLET PO SCH ×2 (09:58→20:48)
--- NOTE | 2020-07-04 10:00 | NUR ---
24 hour urine is collected and dropped off to the lab
[2020-07-04 16:09] VITALS: BP 130/54
[2020-07-04] MEDS: MONTELUKAST SODIUM 10 MG TABLET PO SCH (17:17)
[2020-07-04 20:03] VITALS: BP_SYST 112; BP_SYST 114; BP_DIAS 69
[2020-07-04] MEDS: DULOXETINE 20 MG CAPSULE.DR PO SCH (20:46)
[2020-07-04] MEDS: CETIRIZINE HCL 10 MG TABLET PO SCH (20:47)
[2020-07-04] MEDS: CULTURELLE CAPSULE PO SCH (20:47)
[2020-07-04] MEDS: METOPROLOL SUCCINATE XL 25 MG TAB.SR.24H PO SCH (20:47)
[2020-07-05 04:09] VITALS: BP 119/49
--- NOTE | 2020-07-05 05:14 | NUR ---
AAOx4 Needs attended. Patient with left total knee replacement. Dressing clean dry and intact. VSS. Voiding well. No acute distress noted. Kept comfortable. No complaints presented during shift. Will monitor patient. Tolerated po meds well.
[2020-07-05] MEDS: PANTOPRAZOLE SODIUM 40 MG TABLET.DR PO SCH (06:21)
[2020-07-05] MEDS: LEVOTHYROXINE SODIUM 25 MCG TABLET PO SCH (06:21)
[2020-07-05 07:11] LABS: BASOPHILS % (AUTO) 0.6 % (0.0-2.0); EOSINOPHILS # (AUTO) 0.1 K/uL (0.0-0.7); EOSINOPHILS % (AUTO) 2.5 % (0.0-7.0); HEMATOCRIT 27.6 % (31.2-41.9); HEMOGLOBIN 9.5 g/dL (10.9-14.3); LYMPHOCYTES # (AUTO) 1.5 K/uL (20.0-40.0); LYMPHOCYTES % (AUTO) 24.5 % (20.5-51.5); MEAN CORPUSCULAR HEMOGLOBIN 31.7 uug (24.7-32.8); MEAN CORPUSCULAR HGB CONC 34 g/dL (32.3-35.6); MEAN CORPUSCULAR VOLUME 92.1 fL (75.5-95.3); MONOCYTES # (AUTO) 0.8 K/uL (2.0-10.0); MONOCYTES % (AUTO) 13.9 % (0.0-11.0); NEUTROPHILS # (AUTO) 3.5 K/uL (1.8-8.9); NEUTROPHILS % (AUTO) 58.5 % (38.5-71.5); PLATELET COUNT (AUTO) 187 K/uL (179-408); RED BLOOD CELL COUNT(AUTO) 2.99 MIL/uL (3.63-4.92); WHITE BLOOD COUNT (AUTO) 6.1 K/uL (3.8-11.8)
[2020-07-05 07:30] VITALS: BP 144/70
[2020-07-05] MEDS: CALCIUM CARBONATE 500 MG TABLET PO SCH ×2 (08:30→16:15)
[2020-07-05] MEDS: DOCUSATE SODIUM 100 MG CAPSULE PO SCH ×2 (08:31→16:15)
[2020-07-05] MEDS: MEGESTROL ACETATE 20 MG TABLET PO SCH (08:31)
[2020-07-05] MEDS: CHOLECALCIFEROL 1,000 UNIT TABLET PO SCH (08:31)
[2020-07-05] MEDS: APIXABAN 2.5 MG TABLET PO SCH ×2 (08:31→20:55)
[2020-07-05] MEDS: OMEGA-3 FATTY ACIDS/FISH OIL CAPSULE PO SCH (08:31)
[2020-07-05] MEDS: MULTIVITAMINS,THERAPEUTIC TABLET PO SCH (08:31)
[2020-07-05] MEDS: MIRALAX 17 GM POWD.PACK GT SCH (08:31)
[2020-07-05] MEDS: ENSURE ENLIVE (VAN) 240 ML LIQUID PO SCH ×2 (08:37→16:16)
--- NOTE | 2020-07-05 13:39 | NUR ---
INTERDISCIPLINARY TEAM CONFERENCE
[2020-07-05 15:51] VITALS: BP 100/46
[2020-07-05] MEDS: MONTELUKAST SODIUM 10 MG TABLET PO SCH (18:47)
[2020-07-05 20:43] VITALS: BP 124/45
[2020-07-05] MEDS: DULOXETINE 20 MG CAPSULE.DR PO SCH (20:53)
[2020-07-05] MEDS: CULTURELLE CAPSULE PO SCH (20:53)
[2020-07-05] MEDS: CETIRIZINE HCL 10 MG TABLET PO SCH (20:53)
[2020-07-05] MEDS: METOPROLOL SUCCINATE XL 25 MG TAB.SR.24H PO SCH (20:57)
[2020-07-06 04:00] VITALS: BP 123/35
--- NOTE | 2020-07-06 06:00 | NUR ---
AAOx4 no acute distress noted. All needs attended too promptly. Dressing clean dry and intact. VSS. Voiding well. No acute distress noted. Kept comfortable. No complaints presented during shift. safety measures maintained. Will endorse oncoming nurse.
[2020-07-06] MEDS: LEVOTHYROXINE SODIUM 25 MCG TABLET PO SCH (06:24)
[2020-07-06] MEDS: PANTOPRAZOLE SODIUM 40 MG TABLET.DR PO SCH (06:24)
[2020-07-06 06:46] LABS: BASOPHILS % (AUTO) 0.6 % (0.0-2.0); EOSINOPHILS # (AUTO) 0.2 K/uL (0.0-0.7); EOSINOPHILS % (AUTO) 2.2 % (0.0-7.0); HEMATOCRIT 30.8 % (31.2-41.9); HEMOGLOBIN 10.2 g/dL (10.9-14.3); LYMPHOCYTES # (AUTO) 1.5 K/uL (20.0-40.0); LYMPHOCYTES % (AUTO) 21.3 % (20.5-51.5); MEAN CORPUSCULAR HEMOGLOBIN 31.2 uug (24.7-32.8); MEAN CORPUSCULAR HGB CONC 33 g/dL (32.3-35.6); MEAN CORPUSCULAR VOLUME 94.1 fL (75.5-95.3); MONOCYTES # (AUTO) 0.8 K/uL (2.0-10.0); MONOCYTES % (AUTO) 11.2 % (0.0-11.0); NEUTROPHILS # (AUTO) 4.5 K/uL (1.8-8.9); NEUTROPHILS % (AUTO) 64.7 % (38.5-71.5); PLATELET COUNT (AUTO) 233 K/uL (179-408); RED BLOOD CELL COUNT(AUTO) 3.28 MIL/uL (3.63-4.92); WHITE BLOOD COUNT (AUTO) 6.9 K/uL (3.8-11.8)
[2020-07-06 07:44] LABS: MAGNESIUM 2.1 mg/dL (1.8-2.4); POTASSIUM 4.7 mmol/L (3.5-5.1)
[2020-07-06 08:00] VITALS: BP 118/45
[2020-07-06] MEDS: APIXABAN 2.5 MG TABLET PO SCH ×2 (08:51→21:53)
[2020-07-06] MEDS: MEGESTROL ACETATE 20 MG TABLET PO SCH (08:52)
[2020-07-06] MEDS: CHOLECALCIFEROL 1,000 UNIT TABLET PO SCH (08:52)
[2020-07-06] MEDS: CALCIUM CARBONATE 500 MG TABLET PO SCH ×2 (08:52→17:26)
[2020-07-06] MEDS: MULTIVITAMINS,THERAPEUTIC TABLET PO SCH (08:52)
[2020-07-06] MEDS: DOCUSATE SODIUM 100 MG CAPSULE PO SCH ×2 (08:53→17:27)
[2020-07-06] MEDS: OMEGA-3 FATTY ACIDS/FISH OIL CAPSULE PO SCH (08:53)
[2020-07-06] MEDS: ENSURE ENLIVE (VAN) 240 ML LIQUID PO SCH ×2 (08:56→17:27)
[2020-07-06] MEDS: MIRALAX 17 GM POWD.PACK GT SCH (08:56)
[2020-07-06 15:00] VITALS: BP 136/45
[2020-07-06] MEDS: MONTELUKAST SODIUM 10 MG TABLET PO SCH (17:26)
--- NOTE | 2020-07-06 18:30 | NUR ---
EOSS: No significant acute changes during this shift. No changes in pt. LOC. All due medications given as ordered with no ASE. Pt. participated with PT and tolerated tx well. No new skin condition noted. Safety measures in place. Call light and all frequently used items within pt. reach. Will endorse to oncoming shift accordingly.
[2020-07-06 20:00] VITALS: BP 129/46
[2020-07-06] MEDS: CULTURELLE CAPSULE PO SCH (21:53)
[2020-07-06] MEDS: ACETAMINOPHEN 325 MG TABLET PO PRN (21:54)
[2020-07-06] MEDS: DULOXETINE 20 MG CAPSULE.DR PO SCH (21:54)
[2020-07-06] MEDS: CETIRIZINE HCL 10 MG TABLET PO SCH (21:54)
[2020-07-06] MEDS: METOPROLOL SUCCINATE XL 25 MG TAB.SR.24H PO SCH (22:00)
[2020-07-07 04:00] VITALS: BP 144/57
--- NOTE | 2020-07-07 04:53 | NUR ---
no changes. no acute distress noted. All needs attended too promptly. Dressing clean dry and intact. VSS. Voiding well. All due medication administered. Kept comfortable. No complaints presented during shift. safety measures maintained. Will endorse oncoming nurse.
[2020-07-07] MEDS: PANTOPRAZOLE SODIUM 40 MG TABLET.DR PO SCH (06:24)
[2020-07-07] MEDS: LEVOTHYROXINE SODIUM 25 MCG TABLET PO SCH (06:25)
[2020-07-07 06:31] LABS: HEMATOCRIT 29.3 % (31.2-41.9); HEMOGLOBIN 10.1 g/dL (10.9-14.3)
[2020-07-07 07:30] VITALS: BP 129/50
[2020-07-07] MEDS: DOCUSATE SODIUM 100 MG CAPSULE PO SCH ×2 (10:16→16:17)
[2020-07-07] MEDS: OMEGA-3 FATTY ACIDS/FISH OIL CAPSULE PO SCH (10:16)
[2020-07-07] MEDS: ENSURE ENLIVE (VAN) 240 ML LIQUID PO SCH ×2 (10:17→17:00)
[2020-07-07] MEDS: APIXABAN 2.5 MG TABLET PO SCH ×2 (10:17→21:18)
[2020-07-07] MEDS: MIRALAX 17 GM POWD.PACK GT SCH (10:17)
[2020-07-07] MEDS: MULTIVITAMINS,THERAPEUTIC TABLET PO SCH (10:18)
[2020-07-07] MEDS: MEGESTROL ACETATE 20 MG TABLET PO SCH (10:18)
[2020-07-07] MEDS: CALCIUM CARBONATE 500 MG TABLET PO SCH ×2 (10:18→16:16)
[2020-07-07] MEDS: CHOLECALCIFEROL 1,000 UNIT TABLET PO SCH (10:19)
[2020-07-07 11:44] VITALS: BP 110/48
[2020-07-07 15:54] VITALS: BP 91/43
[2020-07-07] MEDS: MONTELUKAST SODIUM 10 MG TABLET PO SCH (16:16)
[2020-07-07 20:10] VITALS: BP 152/47
[2020-07-07] MEDS: CETIRIZINE HCL 10 MG TABLET PO SCH (21:15)
[2020-07-07] MEDS: METOPROLOL SUCCINATE XL 25 MG TAB.SR.24H PO SCH (21:15)
[2020-07-07] MEDS: DULOXETINE 20 MG CAPSULE.DR PO SCH (21:15)
[2020-07-07] MEDS: CULTURELLE CAPSULE PO SCH (21:16)
--- NOTE | 2020-07-08 02:07 | NUR ---
AAOx4 OOB to the BR with walker. Voiding freely. Needs attended. Compliant with care and meds. No acute distress noted. VSS. Possible discharge today. Left knee incision healing well.
[2020-07-08 04:47] VITALS: BP 152/67
[2020-07-08] MEDS: PANTOPRAZOLE SODIUM 40 MG TABLET.DR PO SCH (06:11)
[2020-07-08] MEDS: LEVOTHYROXINE SODIUM 25 MCG TABLET PO SCH (06:11)
--- NOTE | 2020-07-08 06:45 | NUR ---
End of shift notes: Slept well most of the shift. Needs attended. OOB to the BR. Voiding well. No acute distress noted. VSS.
[2020-07-08] MEDS: OMEGA-3 FATTY ACIDS/FISH OIL CAPSULE PO SCH (09:05)
[2020-07-08] MEDS: MULTIVITAMINS,THERAPEUTIC TABLET PO SCH (09:05)
[2020-07-08] MEDS: CALCIUM CARBONATE 500 MG TABLET PO SCH (09:05)
[2020-07-08] MEDS: DOCUSATE SODIUM 100 MG CAPSULE PO SCH (09:05)
[2020-07-08] MEDS: MEGESTROL ACETATE 20 MG TABLET PO SCH (09:05)
[2020-07-08] MEDS: APIXABAN 2.5 MG TABLET PO SCH (09:07)
[2020-07-08] MEDS: CHOLECALCIFEROL 1,000 UNIT TABLET PO SCH (09:09)
[2020-07-08] MEDS: MIRALAX 17 GM POWD.PACK GT SCH (09:13)
[2020-07-08] MEDS: ENSURE ENLIVE (VAN) 240 ML LIQUID PO SCH (09:13)
[2020-07-08 09:30] LABS: HEMATOCRIT 30.2 % (31.2-41.9); HEMOGLOBIN 10.1 g/dL (10.9-14.3)
--- NOTE | 2020-07-08 13:34 | NUR ---
Gps/Air Quality Technician- Reviewed discharged instructions, prescriptions/medications, skin care, dietary needs and restrictions, safety reviewed and emphasized, follow up with her primary Doctor , patient verbalized understanding. All belongings given back to patient, had BSC, front wheel walker with patient. Discharged via private car, with no new complaints noted. B/P 111/44 HR 69, 02 sat 92%. Discharged in good spirit accompanied by her son
== END 2020-07-08 13:40 | disposition home health service (06) | DRG 175 ==
PROVIDERS: ADMIT Physical Medicine & Rehabilitation Pain Medicine; ATTEND Physical Medicine & Rehabilitation Pain Medicine
PROC: 07DR3ZX Extraction of Iliac Bone Marrow, Percutaneous Approach, Diagnostic (ICD-10-PCS; principal; 2020-07-03)
DX: I26.99 Other pulmonary embolism without acute cor pulmonale (principal); E43 Unspecified severe protein-calorie malnutrition; I21.A1 Myocardial infarction type 2; D68.59 Other primary thrombophilia; C90.00 Multiple myeloma not having achieved remission; E87.1 Hypo-osmolality and hyponatremia; N17.9 Acute kidney failure, unspecified; Z47.1 Aftercare following joint replacement surgery; D47.2 Monoclonal gammopathy; D64.9 Anemia, unspecified; E03.9 Hypothyroidism, unspecified; E78.5 Hyperlipidemia, unspecified; I13.10 Hypertensive heart and chronic kidney disease without heart failure, with stage 1 through stage 4 chronic kidney disease, or unspecified chronic kidney disease; N18.9 Chronic kidney disease, unspecified; J44.9 Chronic obstructive pulmonary disease, unspecified; M19.90 Unspecified osteoarthritis, unspecified site; Z96.652 Presence of left artificial knee joint; R53.1 Weakness; K76.0 Fatty (change of) liver, not elsewhere classified; Z85.840 Personal history of malignant neoplasm of eye; D69.6 Thrombocytopenia, unspecified; E87.5 Hyperkalemia; K59.00 Constipation, unspecified; M25.78 Osteophyte, vertebrae; R26.9 Unspecified abnormalities of gait and mobility; R42 Dizziness and giddiness; R77.8 Other specified abnormalities of plasma proteins; K44.9 Diaphragmatic hernia without obstruction or gangrene
CPT/HCPCS: 36415; 70030-TC; 83735; 84100; 85018; 85025; 85610; 85730; J1650; J3490